=== PATIENT | female | born 1995 | race Caucasian/White ===

== ENCOUNTER → 2020-11-13 00:29 | Outpatient (CLI) | payer OTHER, SELFPAY ==
[2020-11-13 19:43] LABS: SARS-CoV-2 RNA PCR Negative
== END ==
PROVIDERS: PCP Internal Medicine; Visit Provider Surgery Plastic and Reconstructive Surgery
DX: Z01.812 Encounter for preprocedural laboratory examination (principal); Z20.822 Contact with and (suspected) exposure to COVID-19
CPT/HCPCS: C9803; U0003; U0005

== ENCOUNTER 2020-11-16 01:06 | Day surgery (SDC) | payer OTHER, SELFPAY ==
[2020-11-04 08:36] VITALS: BMI 33.9
[2020-11-16] VITALS (8 sets, daily range): BP systolic 130–147; BP diastolic 71–92; PULSE 69–99; RESP 12–18; TEMP 36.5–36.6; O2SAT 97–100
[2020-11-16] MEDS: LACTATED RINGERS 1,000 ML 30 ML IV CONT ×2 (09:09→13:22)
--- NOTE | 2020-11-16 09:17 | WPDANESEPPF ---
Anes - Initial Pre Proc Eval Procedure: Operation Date: 11/16/20 10:30 Proposed Procedures p Bilateral Breast Reduction - Gregory Aviles MD Date/Time: 11/16/20 09:17 Surgeon: Gregory Aviles MD Pre Op Diagnosis: Macromastia Patient Data Age: 25 Gender: F Height: 1.64 m Weight: 91 kg Allergies Allergy/AdvReac Type Severity Reaction Status Date / Time latex Allergy Severe Rash Verified 11/04/20 08:22 cranberry Allergy Hives Verified 11/04/20 08:22 Home Medications Medication Instructions Recorded Confirmed Type lamotrigine 50 mg PO HS 11/04/20 11/04/20 History Patient hx anesthesia problems: none Family hx anesthesia problems: none PMFSH Past Medical History Medical History (Updated 11/16/20 @ 09:17 by Sheng Arias DO) Anxiety Asthma no inhaler for years Migraine Seizure last seizure in 2015 - stopped meds in 2017 Vaginal delivery x1 Surgical History Surgical History History of bilateral tubal ligation 03-11-2018 History of ear surgery reconstructive surgery History of eye surgery tear duct tubes Previous section x1 Family History Family History Father Hypertension Diabetes mellitus Mother Hypertension Anxiety Depression Grandparent Diabetes mellitus Hypertension Anxiety Depression Social History Social History Smoking status: Never smoker Substance use: never Living arrangements: with family Spiritual care concerns: No Anes - Eval Final PreProcedure Day of Procedure 11/16/20 09:17 Patient weight: obese Heart: regular rate and rhythm Lungs: clear to auscultation and normal air movement Airway: Mallampati scale class II Neurological: alert and oriented Last oral intake: >/= 8 hours ASA classification: III Emergent: no Anesthetic plan: proceed Anesthesia type and monitoring: general LMA and standard monitoring Informed Consent: The patient's anesthetic plan and its attendant risks and benefits were discussed with the patient/family/POA. Questions were solicited and answers provided to the satisfaction of the patient/family/POA.
--- NOTE | 2020-11-16 10:00 | WPDHPUPDATE1 ---
History and Physical Update Update Date/Time: 11/16/20 10:00 History and Physical has been reviewed, including an updated exam of the patient. There are NO changes in the patient's condition. Risks, benefits, and alternatives have been discussed and questions answered. Patient agrees to proceed with procedure.
[2020-11-16 10:34] LABS: Urine Cotinine NEGATIVE
--- NOTE | 2020-11-16 10:34 | PM.PROC ---
Procedure Note - Detailed Date of procedure: 11/16/20 Pre-op diagnosis: Macromastia Breast Asymmetry Post-op diagnosis: same Procedure performed: Bilateral reduction mammaplasty Description of procedure: She is here today for bilateral breast reduction. Previously and again today the risks, benefits, alternatives were discussed in extensive detail. I wanted her to be very realistic about the risks involved as well as expectations. We discussed aftercare and what to monitor for. She understands we can never guarantee final breast size and there will always be asymmetry, especially given her significant pre-operative asymetry.. I was very upfront and honest about the risks of sensation change and even nipple loss (). Made sure answered all of her questions to her satisfaction today and consent was obtained. She was marked in the preoperative holding area with their verification. The patient was taken to the operating room placed supine on the operating table. Anesthesia was provided by anesthesiology. She was prepped and draped in a standard sterile fashion. A surgical time-out was taken. Stab incisions were made and I tumessed with a tumescent solution. I marked out the nipple-areolar complex at 38 mm. I then de-epithelialized the pedicle. The pedicle was well left well more than 2 cm in thickness. I then removed the inferior portion of the breast as well as the central keel to get shape based on preoperative planning. This was primarily on the right. On left will proceed at the same manner however minimal tissue was removed. She had a significant asymmetry which had to be addressed. At this point copiously irrigated with saline solution and verified a strict hemostasis. I reapproximated the pillars using a 2-0 PDS as well as along the IMF. I tailor tacked the breast into place with abi. She was placed in a sitting position. I verified the nipple-areolar complex position based on preoperative markings, intraoperative measurements, and observation which were in full agreement. This nipple-areolar complex was marked at 38 mm in size. I completed suction lipectomy based on S.A.F.E. technique using a 4 mm basket cannula in order to maximize symmetry sides. Total lipoaspirate 300cc. I then placed supine and de-epithelialized this. Nipple-areolar complex was inset with 3-0 Monocryl. I closed the vertical incision with 3-0 Monocryl in the IMF with 3-0 stratafix. Then everything was closed using a running subcuticular 4-0 Monocryl followed by Steri-Strips. A dressing was placed followed by surgical bra. Patient was awoke and taken to PACU without difficulty. All instrument sponge counts were correct at the end of the case. Anesthesia: GLMA Surgeon: Gregory Aviles MD Estimated blood loss (mL): 30 Drains: No Packing: No Pathology: yes (Right breast. Minimal left breast removed.) Complications: No immediate complications Condition: stable Disposition: PACU Findings: Inverted T Bilateral superior medial pedicle Tissue removed: Right - 745 grams Left - 20 grams
[2020-11-16] MEDS: ceFAZolin 2 GM/D5W 50 ML 2 GM/50 ML BAG IVPB (10:36)
[2020-11-16] MEDS: LACTATED RINGERS IRRIG 1,000 ML, LIDOCAINE HCL 1% LOCAL INJ 50 ML, EPINEPHrine HCL INJ ... INFILTRATE (10:36)
--- NOTE | 2020-11-16 12:17 | SUR.OPER ---
due to small tissue volurme removed from left breast, no tissue sent to pathology
[2020-11-16] MEDS: fentaNYL CITRATE INJ (*CRX) 100 MCG/2 ML VIAL 25 MCG IV PUSH ×2 (13:39→13:56)
[2020-11-16] MEDS: ONDANSETRON INJ 4 MG/2 ML VIAL IV PUSH (14:02)
[2020-11-16] MEDS: oxyCODONE HCL (*CRX) 5 MG TAB IR PO (14:28)
== END 2020-11-16 14:56 | disposition home or self-care (01) ==
PROVIDERS: PCP Internal Medicine; Visit Provider Surgery Plastic and Reconstructive Surgery
PROC: 0HBV0ZZ Excision of Bilateral Breast, Open Approach (ICD-10-PCS; CPT 19318; principal; 2020-11-16 10:30)
DX: N62 Hypertrophy of breast (principal); N60.31 Fibrosclerosis of right breast; E66.9 Obesity, unspecified; Z68.34 Body mass index [BMI] 34.0-34.9, adult
CPT/HCPCS: 19318; 80307; 88305; A9270; C9803; J0171; J0690; J1100; J1170; J2250; J2405; J2704; J3010; J7120; U0003; U0005

== ENCOUNTER 2021-09-26 14:01 | Outpatient (CLI) | payer OTHER, SELFPAY ==
--- NOTE | ~2021-09-26 | MR_ITS ---
EXAMINATION: MR orbits face neck wo/w con DATE: 09/26/2021 14:53 INDICATION: Visual field defect. New daily persistent headaches. TECHNIQUE: Magnetic resonance imaging (MRI) of the orbits was performed without and with 15 mL MultiH ance intravenous contrast. Sequences of the orbits included coronal and axial T2-weighted FS FSE and T1-weighted FSE. Postcontrast sequences included axial and coronal T1-weighted FS FSE. COMPARISON: None. FINDINGS: The extraocular muscles are normal. The optic nerves and optic chiasm are normal. There is no abnormal mass. The ocular globes are normal. There is mild mucosal thickening in the paranasal sin uses. There is a small right mastoid effusion. IMPRESSION: 1. Normal orbits. Reviewed, dictated and finalized at location A. IMPRESSION: 1. Normal orbits.
--- NOTE | ~2021-09-26 | MR_ITS ---
. EXAMINATION: MR brain/brain stem wo/w con DATE: 09/26/2021 14:53 INDICATION: Visual field defect. New daily persistent headache. TECHNIQUE: Magnetic resonance imaging (MRI) of the brain and brainstem was performed without and with 15 mL MultiHance intravenous contrast. Sequences included sagittal and axial T1-weighted FSE, axial diffusion-weighted FS EPI, axial T2*-weighted GRE, axial T2-weighted FLAIR Propeller, and axial T2-we ighted Propeller. Postcontrast sequences included axial and coronal T1-weighted FSE. Apparent diffusi on coefficient (ADC) maps were created. COMPARISON: None. FINDINGS: There is no intracranial hemorrhage, acute infarction, or abnormal intracranial mass lesion . The ventricles are normal in size. There is a small right mastoid effusion. There is mild mucosal t hickening in the paranasal sinuses. The orbits are normal. IMPRESSION: 1. Normal brain. Reviewed, dictated and finalized at location A. IMPRESSION: 1. Normal brain.
[2021-09-26 14:33] LABS: Estimated Glomerular Filt Rate > 60
== END 2021-09-26 14:02 ==
PROVIDERS: Visit Provider Ophthalmology
DX: H53.47 Heteronymous bilateral field defects (principal)
CPT/HCPCS: 70543; 70553; A9577

== ENCOUNTER 2022-09-13 11:46 | Outpatient (CLI) | payer OTHER, SELFPAY ==
[2022-09-13 12:25] LABS: Hematocrit 38.9 % (37.0-47.0); Hemoglobin 13.8 g/dL (12.0-15.0); Mean Corpuscular HGB Conc 35.5 g/dl (32-36); Mean Corpuscular Hemoglobin 29.5 pg (26-34); Mean Corpuscular Volume 83.1 fl (80-100); Mean Platelet Volume 10.5 fl (7.4-10.4); Platelet Count Result 306 k/mm3 (150-375); Red Blood Count 4.68 M/mm3 (4.2-5.4); Red Cell Distribution Width 12.4 % (11.5-14.5); White Blood Count 7.3 K/mm3 (4.5-10.0)
[2022-09-13 12:41] LABS: Alanine Aminotransferase 24 U/L (6-35); Albumin Level 4.7 g/dL (3.5-5.1); Alkaline Phosphatase 58 U/L (38-126); Anion Gap 6 mmol/L (8-16); Aspartate Amino Transferase 22 U/L (14-36); Bilirubin,Total 0.5 mg/dL (0.2-1.3); Blood Urea Nitrogen 8 mg/dL (7-17); CRP < 0.5 mg/dL (<1.0); Calcium 8.8 mg/dL (8.4-10.2); Carbon Dioxide 29 mmol/L (22-30); Chloride 105 mmol/L (98-107); Estimated Glomerular Filt Rate > 60; Glucose 84 mg/dL (65-110); Potassium 3.4 mmol/L (3.4-5.0); Sodium 140 mmol/L (137-145)
[2022-09-13 12:49] LABS: Erythrocyte Sedimentation Rate 17 mm/hr (0-20)
[2022-09-13 13:03] LABS: Hemoglobin A1C 4.6 % (<5.7)
[2022-09-23 19:47] LABS: Gliadin AB, IgG <1.0 U/mL (<15.0); TTG IGA AB <1.0 U/mL (<15.0)
== END 2022-09-13 11:47 | disposition home or self-care (01) ==
LOC: ANHLAB 11:47
PROVIDERS: Visit Provider Nurse Practitioner
DX: K52.9 Noninfective gastroenteritis and colitis, unspecified (principal); R10.31 Right lower quadrant pain; R10.32 Left lower quadrant pain
CPT/HCPCS: 36415; 80053; 83036; 84443; 85027; 85652; 86140; 86255; 86364

== ENCOUNTER 2022-10-02 09:00 | Outpatient (NON) | payer OTHER, SELFPAY | END 2022-10-02 09:01 | disposition home or self-care (01) | LOC: ANHLAB 10-03 07:33 | PROVIDERS: Visit Provider Internal Medicine Gastroenterology | DX: K52.9 Noninfective gastroenteritis and colitis, unspecified (principal) | CPT/HCPCS: 88305 ==

== ENCOUNTER 2022-10-02 11:59 | Day surgery (SDC) | payer OTHER, SELFPAY ==
[2022-09-19 07:54] VITALS: BMI 30.4
[2022-09-25 12:26] VITALS: BMI 29.5
--- NOTE | 2022-10-02 10:45 | WPDANESEPPF ---
Anes - Initial Pre Proc Eval Procedure: Operation Date: 10/02/22 13:30 Proposed Procedures p Diagnostic Colonoscopy - Angel Lyon MD Date/Time: 10/02/22 10:45 Surgeon: Angel Lyon MD Pre Op Diagnosis: Diarrhea, Gastroenteritis, Hamat[place]zia, Colitis Patient Data Age: 27 Gender: F Height: 1.63 m Weight: 78 kg Allergies Allergy/AdvReac Type Severity Reaction Status Date / Time latex Allergy Severe Hives Verified 09/25/22 12:23 cranberry Allergy Hives Verified 09/13/22 11:06 Home Medications Medication Instructions Recorded Confirmed Type dicyclomine 20 mg tablet 20 mg PO .every 6 hours PRN 09/13/22 09/25/22 Rx diarrhea #120 tabs sodium,potassium,mag sulfates 17.5 See Rx Instructions PO .COMPLEX 09/19/22 Rx gram-3.13 gram-1.6 gram oral soln #354 mL (Suprep Bowel Prep Kit) Patient hx anesthesia problems: none Family hx anesthesia problems: none Results Review: All pre-operative results and documents have been reviewed as part of the pre-operative evaluation. [facility] Past Medical History Medical History (Updated 09/13/22 @ 11:59 by Janet East, [employer]) Anxiety Asthma no inhaler for years Bilateral lower abdominal cramping Chronic diarrhea Chronic diarrhea Migraine Obesity (BMI 30.0-34.9) Prolapse of female pelvic organs Seizure last seizure in 2015 - stopped meds in 2017 Vaginal delivery x1 Surgical History Surgical History History of bilateral tubal ligation 03-11-2018 History of ear surgery reconstructive surgery History of eye surgery tear duct tubes Previous section x1 Family History Family History Father Hypertension Diabetes mellitus Mother Hypertension Anxiety Depression Grandparent Diabetes mellitus Hypertension Anxiety Depression Social History Social History Smoking status: Never smoker Alcohol intake: unknown Substance use: never Substance use type: does not use Living arrangements: with family Spiritual care concerns: No Anes - Eval Final PreProcedure Day of Procedure 10/02/22 10:45 Patient weight: overweight Heart: regular rate and rhythm Lungs: clear to auscultation and normal air movement Airway: Mallampati scale class II Neurological: alert and oriented Last oral intake: >/= 8 hours ASA classification: II Emergent: no Anesthetic plan: proceed Anesthesia type and monitoring: general GIVS and standard monitoring Results Review: All pre-operative results and documents have been reviewed as part of the pre-operative evaluation. Informed Consent: The patient's anesthetic plan and its attendant risks and benefits were discussed with the patient/family/POA. Questions were solicited and answers provided to the satisfaction of the patient/family/POA.
--- NOTE | 2022-10-02 12:19 | WPDHPUPDATE1 ---
History and Physical Update Update Date/Time: 10/02/22 12:19 History and Physical has been reviewed, including an updated exam of the patient. There are NO changes in the patient's condition. Risks, benefits, and alternatives have been discussed and questions answered. Patient agrees to proceed with procedure.
[2022-10-02 12:20] VITALS: BP 125/88; PULSE 78; RESP 20; TEMP 36.7; O2SAT 99
[2022-10-02] MEDS: LACTATED RINGERS 1,000 ML 150 ML IV CONT (12:37)
[2022-10-02 14:06] VITALS: BP 125/71; PULSE 78; RESP 18; O2SAT 100
[2022-10-02 14:16] VITALS: BP 107/74; PULSE 82; RESP 18; O2SAT 100
[2022-10-02 14:26] VITALS: BP 116/81; PULSE 84; RESP 18; O2SAT 100
--- NOTE | 2022-10-02 15:01 | WPDANESPN ---
Anes - Prog Note Post-Op Date/Time: 10/02/22 15:01 Cardiovascular status: normal Respiratory status: normal Airway patency: baseline Mental status: baseline Post-Op hydration status: normal Vital Signs: Last Vital Signs Temp 36.7 C 10/02/22 12:20 Pulse 84 10/02/22 14:26 Resp 18 10/02/22 14:26 BP 116/81 10/02/22 14:26 Pulse Ox 100 10/02/22 14:26 O2 Del Method Room Air 10/02/22 14:26 Pain Score (VAS): 0 I/O: Intake & Output 10/01/22 10/02/22 10/02/22 23:59 07:59 15:59 Intake Total 800 Balance 800 Post-procedural complaints: none Patient Feedback: Patient satisfied with anesthetic care.
== END 2022-10-02 14:40 | disposition home or self-care (01) ==
PROVIDERS: Visit Provider Internal Medicine Gastroenterology
PROC: 0DJD8ZZ Inspection of Lower Intestinal Tract, Via Natural or Artificial Opening Endoscopic (ICD-10-PCS; CPT 45378; principal; 2022-10-02 13:30)
DX: R19.7 Diarrhea, unspecified (principal)
CPT/HCPCS: 45380

== ENCOUNTER 2024-10-21 15:37 | Outpatient (CLI) | payer OTHER, SELFPAY ==
--- NOTE | 2024-10-21 15:51 | ECG_ITS ---
Test Date: 2024-10-21 16:06:31 Measurements Intervals [place] Rate: 78 P: 42 NC: 144 QRS: 69 QRSD: 91 T: 43 QT: 383 QTc: 439 Interpretive Statements SINUS RHYTHM LOW QRS VOLTAGE IN PRECORDIAL LEADS BORDERLINE ECG No previous ECG available for comparison Electronically Signed On 10-21-2024 16:09:00 CDT by Ran Cook D.O.
[2024-10-21 15:53] LABS: Basophils Absolute Auto 0.03 K/mm3 (0.00-0.10); Basophils Percent Auto 0.3 % (0.0-1.0); Eosinophils Absolute Auto 0.14 K/mm3 (0.02-0.50); Eosinophils Percent Auto 1.6 % (1.0-6.0); Hematocrit 37.9 % (35.0-49.0); Hemoglobin 12.8 g/dL (12.0-15.0); Immature Granulocyte Absolute 0.03 K/mm3 (0.00-0.00); Immature Granulocyte Percent A 0.3 % (0.0-0.0); Lymphocytes Absolute Auto 2.24 K/mm3 (1.10-4.50); Lymphocytes Percent Auto 26.1 % (18.0-42.0); Mean Corpuscular HGB Conc 33.8 g/dL (32-36); Mean Corpuscular Hemoglobin 28.8 pg (27.0-31.0); Mean Corpuscular Volume 85.2 fL (78.0-102.0); Mean Platelet Volume 9.7 fl (9.2-11.8); Monocytes Absolute Auto 0.57 K/mm3 (0.10-0.90); Monocytes Percent Auto 6.6 % (2.0-11.0); Neutrophils Absolute Auto 5.58 K/mm3 (1.70-7.20); Neutrophils Percent Auto 65.1 % (50.0-70.0); Platelet Count Result 314 K/mm3 (150-420); Red Blood Count 4.45 M/mm3 (4.20-5.40); Red Cell Distribution Width 12.8 % (11.6-14.4); White Blood Count 8.6 K/mm3 (4.8-10.8)
[2024-10-21 16:54] LABS: Alanine Aminotransferase 28 U/L (14-59); Alkaline Phosphatase 68 U/L (46-116); Anion Gap 8 mmol/L (4-12); Aspartate Amino Transferase 16 U/L (15-37); Bilirubin,Total 0.5 mg/dL (0.00-1.00); Blood Urea Nitrogen 6 mg/dL (7-18); Calcium 9.3 mg/dL (8.5-10.1); Carbon Dioxide 29 mmol/L (21-32); Chloride 105 mmol/L (98-108); Cholesterol 205 mg/dL (0-200); Estimated Glomerular Filt Rate > 60; Glucose 74 mg/dL (70-99); HDL Direct 43 mg/dL (40-60); LDL Cholesterol Calculated 128 mg/dL (<130); Osmolality Calculated 290 mOsm/kg (285-295); Potassium 4.2 mmol/L (3.5-5.1); Sodium 142 mmol/L (136-145); Thyroid Stimulating Hormone 3.17 uIU/mL (0.36-3.74); Total Protein 7.6 g/dL (6.4-8.2); Triglycerides 170 mg/dL (0-150)
--- OUTSIDE RECORDS SUMMARY | 2024-10-21 17:42 | XMS_ITS | Clinical Summary ---
Author Organization [facility] Address [address] [place] [id number] Care Team Providers Care [employer] Outfit Supervisor Name Role Phone Dawood New MD Primary Care Provider [phone] Dawood New MD Unavailable Allergies Active Allergy Reactions Criticality Noted Date Comments Cranberry Extract Rash Medium 08/29/2011 Latex Hives Medium 06/22/2021 Medications No known medications Active Problems Problem Noted Date Diagnosed Date Physical exam, annual 07/10/2022 Assessment & Plan (07/10/2022 3:40 PM SUBSTATION OPERATOR): Discussed lifestyle modifications, diet and exercise. Routine blood work ordered/reviewed today. Yearly vision and dental examinations. Class 1 obesity without seri ous comorbidity with body mass index (BMI) of 31.0 to 31.9 in adult 07/06/2021 Assessment & Plan (07/10/2022 3:42 PM SUBSTATION OPERATOR): Wt Readings from Last 3 Encounters: 07/10/22 83.9 kg (185 lb) 01/05/22 85.7 kg (188 lb 14.4 oz) 11/16/21 90.3 kg (199 lb) BMI Readings from Last 3 Encounters: 07/10/22 31.27 kg/m 01/05/22 31.94 kg/m 11/16/21 33.64 kg/m Not at goal of bmi <30 Continue diet and exercise BMI Follow-up includes: nutrition counseling and exercise counseling. States that she hasd singificant side effects with metformin. Will stop metformin now and try something else Assessment & Plan (07/06/2021 3:46 PM SUBSTATION OPERATOR): HPI: Condition is not at/near goal A&P: Discussed/ordered labs, encouraged healthy, low carbohydrate lifestyle and at least 150min/week of exercise, continue on current regimen Encounter for well woman fay castelan with routine gynecological exam 07/06/2021 Assessment & Plan (07/06/2021 3:20 PM SUBSTATION OPERATOR): Discussed lifestyle modifications, diet and exercise. Routine blood work ordered/reviewed today. Yearly vision and dental examinations. Amenorrhea, secondary 06/22/2021 Assessment & Plan (07/18/2021 12:05 PM SUBSTATION OPERATOR): Still no period. No other symptoms blood work normal. 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 Addendum: Pap showed ACUS with negative HPV. Advised pt she will need repeat pap in 1 year. Would lke referral to OBGYN due to amenorrhea Assessment & Plan (06/22/2021 3:02 PM SUBSTATION OPERATOR): Unknown cause, has been going on for 2 months. States that she has been gaining singnificant weight since her last childbirth Recurrent major depressive disorder, in partial remission 06/22/2021 Assessment & Plan (07/10/2022 3:40 PM SUBSTATION OPERATOR): Stable - not currently on antidepressives. Doing well otherwise Patient reiterated no suicidal thoughts at this time; take medication as directed; contact 911 and go to the ER if becomes suicidal; discussed side effects of medication with patient; encouraged healthy diet and exericise; encouraged patient to see a counselor Assessment & Plan (06/22/2021 3:06 PM SUBSTATION OPERATOR): Patient reiterated no suicidal thoughts at this time; take medication as directed; contact 911 and go to the ER if becomes suicidal; discussed side effects of medication with patient; encouraged healthy diet and exericise; encouraged patient to see a counselor Abnormal weight gain 06/22/2021 Assessment & Plan (07/06/2021 3:45 PM SUBSTATION OPERATOR): Weight manamgenet referral placed. Noted with elevated c - peptide. Can consider work up for pcos, consider starting metformin Assessment & Plan (06/22/2021 3:08 PM SUBSTATION OPERATOR): Will check lab work, and have patient return for follow up. Is currentl making lifestyle and diet changes, works out daily and continues to have weight gain. Potential galactorrhea but patient is unsure Allodynia 12/06/2012 Chronic daily headache 12/06/2012 Assessment & Plan (06/22/2021 3:06 PM SUBSTATION OPERATOR): Headaches doing okay at this time,but will check prolactin level in setting of other issues as well. 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 Asthma 11/08/2009 Resolved Problems Problem Noted Date Diagnosed Date Resolved Date Behavior-irritability 11/08/20092021 Bilateral knee pain 11/08/2009 07/06/19 22 Immunizations Immunization Administration Dates Next Due DTaP 04/26/2000, 0,04/23/1997,09/19,1996 HPV, Quadrivalent 01/31/2011 Hep A, Adult 03/02/2006 Hep A, Pediatric 02/07/2010,03/02/2006 Hep B Vaccine 03/02/2006,08/16/2005,02/22/2005 Hep B, Adolescent or Pediatric 03/02/2006,2005,02/22/2005 HiB 04/26/2000, 7,1996,05/14 IPV 04/26/2000,03/15/2000,1996 Influenza, Quadrivalent, Marie l Culture-based MDCK, Preservative Free, Antibiotic Free, Intramuscular 03/25/2020 Influenza, Quadrivalent, Spl it, Preservative Free, Intramuscular 05/07/2018,09/06/2017 Influenza, Unspecified 05/02/2022,04/26/2021 MMR 03/15/2000,03/02/1998 Meningococcal Conjugate (Menveo) 02/07/2010 Polio, Unspecified 04/26/2000,03/15/2000, 996 Tdap 11/03/2009 Social History Tobacco Use Types Packs/Day Years Used Date Smoking Tobacco: Never PHQ-2 Answer Date Recorded PHQ-2 Total Score (If total score is 3 or more points, staff should administer the PHQ-9) 0 07/10/2022 Personal Safety Answer Date Recorded Getting School Help Needed Not on file 07/15 Comments Unknown Sex and Gender Information Value Date Recorded Sex Assigned at Not on file Legal Sex Female 3:30 PM SUBSTATION OPERATOR Gender Identity Not on file Sexual Orientation Not on file Obstetrics History Last Filed Vital Signs Vital Sign Reading Time Taken Comments Blood Pressure 121/74 07/10/2022 3:34 PM SUBSTATION OPERATOR Pulse 96 07/10/2022 3:34 PM SUBSTATION OPERATOR Temperature 36.4 C (97.5 F) 07/10/2022 3:34 PM SUBSTATION OPERATOR Respiratory Rate 18 07/10/2022 3:34 PM SUBSTATION OPERATOR Oxygen Saturation 98% 07/10/2022 3:34 PM SUBSTATION OPERATOR Inhaled Oxygen Concentration - - Weight 83.9 kg (185 lb) 07/10/2022 3:34 PM SUBSTATION OPERATOR Height 163.8 cm (5' 4.49 ) 07/10/2022 3:34 PM CS T Body Mass Index 31.27 07/10/2022 3:34 PM SUBSTATION OPERATOR Plan of Treatment Health Maintenance Due Date Last Done Comments Hepatitis C Screening 1995 Varicella Vaccines (1 of 2 - 13+ 2-dose series) 02/23/2009 HPV Vaccines (2 - 2-dose series) 08/03/2011 02/01/20 11 Pneumococcal vaccine <65 (1 of 2 - PCV) 02/23/2015 DTaP/Tdap/Td Vaccine (6 - Td or Tdap) 11/04/2019 11/03/2009, 04/26/2000, 03/15/2000, Additional history exists Cervical Cancer Screening 07/06/2022 07/06/2021 Depression Screening 07/10/2023 07/10/2022, 07/06/2021, 06/22/2021 Regular Well Visit/Exam 18-64 07/10/2023 07/10/2022, 07/06/2021 Covid-19 Vaccine ( - 2023-2 5 season) 2024 11/12/2021, 03/03/2021, 02/10/2021 Influenza Vaccine (#1) 2024 2, 04/26/2021, 03/25/2020, Additional history exists Hepatitis B Screening Completed 03/02/2006 , 03/02/2006, 08/16/2005, Additional history exists Procedures Procedure Name Priority Date/Time Associated Diagnosis Comments PAP AND HIGH RISK HPV, REFLEX TO GENOTYPING Routine 07/06/2021 11:01 AM SUBSTATION OPERATOR from Last 3 Months or Most Recently Relevant to Health Maintenance Results * (ABNORMAL) Pap and High Risk HPV, reflex to Genotyping (07/06/2021 11:01 AM SUBSTATION OPERATOR) Pap test 07/06/2021 11:0 1 AM SUBSTATION OPERATOR 07/07/2021 11:01 AM SUBSTATION OPERATOR Narrative 07/13/2021 3:17 PM SUBSTATION OPERATOR [facility] Department of Pathology [address] [place], [place] [id number] Final Report with Addendum Note to Patients: This report may contain a detailed description of human tissue sent by a health care provider to the laboratory for pathologic evaluation. The content of this report is essential for diagnosis and may provide important critical findings. This information may be unfamiliar to patients to review without a medical professional present. It is advised that the patient review this report in the presence of a health care provider who can answer questions and explain the details. Patient Name: GALE CHENEY Address: [address] [place] [address] Gender: F : 1995 (Age: 26) Service: Laboratory Location: Lab [facility] #: [id number] Patient Type: Ref Lab Taken: 07/06/2021 Received: 07/07/2021 Accessioned:: 07/08/2021 Reported: 07/13/2021 Physician(s): Juan Antonio Hernandes M.D. Diagnosis: Source of Specimen: SCREENING THIN PREP IMAGED PAP w/ Reflex HPV Specimen Adequacy: - Satisfactory for evaluation; endocervical/transformation zone component present General Category: - Epithelial cell abnormality Interpretation/Results: - Atypical squamous cells of undetermined significance; - High risk HPV test pending -- addendum to follow FORREST Sargent(ASCP) Ezequiel Deleon M.D. Report Electronically Reviewed and Signed Out By Ezequiel Deleon M.D. 07/13/2021 15:17:20 Addenda: HPV Test Interpretation NEGATIVE for types 16, 18, 31, 33, 35, 39, 45, 51, 52, 56, 58, 59, 66 and 68. Test performed utilizing Gen-Probe Aptima assay. FORREST Burdick(ASCP) Report Electronically Reviewed and Signed Out By FORREST Burdick(ASC) 07/15/2021 13:44:18 Specimen(s) Received: A: SCREENING THIN PREP IMAGED PAP w/ Reflex HPV Clinical History: Last Menstrual Period: 04/12/21 Menstrual History: Amenorrhea: (-) The Pap test is a screening test used to aid in the detection of cervical cancer and its precursors. It should not be the sole means by which malignant and premalignant lesions are diagnosed. Both false negative and false positive results may occur. It also has poor sensitivity for the detection of endometrial lesions and should not be used to evaluate suspected endometrial abnormalities. For these reasons it is most important to obtain Pap tests at regular intervals. The performance characteristics of some immunohistochemical stains, fluorescence in-situ hybridization tests and immunophenotyping by flow cytometry cited in this report (if any) were determined by the Surgical Pathology Department at as part of an ongoing quality assurance clerk program and in compliance with federally mandated regulations drawn from the Clinical Laboratory Improvement Act of 1988 (CLIA '88). Some of these tests rely on the use of analyte specific reagents and are subject to specific labeling requirements by the US Food and Drug Administration. Such diagnostic tests may only be performed in a facility that is certified by the Department of Health and Human Services as a high complexity laboratory under CLIA '88. The FDA has determined that such clearance or approval is not necessary. This test is used for clinical purposes. It should not be regarded as investigational or for research. Nevertheless, federal rules concerning the medical use of analyte specific reagents require that the following disclaimer be attached to the report: This test was developed and its performance characteristics determined by the Surgical Pathology Department [facility]. It has not been cleared or approved by the U. S. Food and Drug Administration. Dawood New MD LAB CYTOLOGY ORDERABLES Final Re sult from Last 3 Months or Most Recently Relevant to Health Maintenance Insurance [facility] CHOICE PLUS [facility] HMO/PPO Address: [facility] [id number] [place] [address] Care Teams Hull Outfit Supervisor Relationship Specialty Start Date End Date Dawood New MD PCP - General 06/23/21 Dawood New MD Family Medicine 06/23/21
--- OUTSIDE RECORDS SUMMARY | 2024-10-21 17:42 | XMS_ITS | Clinical Summary ---
Author Organization [facility] Address [address] [place] [address] Care Team Providers Care Crystal Report Developer Name Role Phone Otoniel Key MD Primary Care Provider [phone] Source Comments [facility],non-owned Affiliates and Associated Physician Practices is amultiple site organization consisting of ambulatory clinics and hospital sitesin [place], [place], [place] and [place]. This disclosure is being madepursuant to the Care Everywhere program and may not contain all information available regarding this patient. Last updated 18.[facility] Allergies Active Allergy Reactions Criticality Noted Date Comments Cranberry Extract Rash Medium 08/29/2011 Medications * Be aware that medications may not be up to date on this document. Alwaysverify current medications with the patient. No known medications Social History Tobacco Use Types Packs/Day Years Used Date Smoking Tobacco: Never Smokeless Tobacco: Never Comments Unknown Sex and Gender Information Value Date Recorded Sex Assigned at Not on file Legal Sex Female 11:27 AM TOP TRIMMER Gender Identity Not on file Sexual Orientation Not on file Last Filed Vital Signs Vital Sign Reading Time Taken Comments Blood Pressure 118/68 08/13/2019 3:05 PM TOP TRIMMER Pulse 103 08/13/2019 3:05 PM TOP TRIMMER Temperature 36.3 C (97.4 F) 08/13/2019 3:05 PM TOP TRIMMER Respiratory Rate - - Oxygen Saturation - - Inhaled Oxygen Concentration - - Weight 85.7 kg (189 lb) 08/13/2019 3:05 PM TOP TRIMMER Height 165.1 cm (5' 5 ) 08/13/2019 3:05 PM TOP TRIMMER Body Mass Index 31.45 08/13/2019 3:05 PM TOP TRIMMER Plan of Treatment Health Maintenance Due Date Last Done Comments PAP SMEAR 1995 HIV SCREENING 02/23/2011 HEPATITIS C SCREENING 02/19/2014 DTAP/TDAP/TD VACCINES (1 - Tdap) 02/23/2015 HEPATITIS B VACCINE (1 of 3 - 19+ 3-dose series) 02/23/2015 COVID-19 VACCINE (1 - 2023-2 5 season) 2024 DEPRESSION SCREENING 07/02/2024 INFLUENZA VACCINE (Season Ended) 2025 05/07/20 18 ZOSTER VACCINE (1 of 2) 02/23/2046 HIB VACCINE Aged Out No longer eligi ble based on patient's age to complete this topic HPV VACCINE Aged Out No longer eligi ble based on patient's age to complete this topic MENINGOCOCCAL (Group B) VACC INE SHARED DECISION-MAKING Aged Out No longer eligibl e based on patient's age to complete this topic MENINGOCOCCAL GROUPS A/C/Y/W VACCINE Aged Out No longer eligible b ased on patient's age to complete this topic PNEUMOCOCCAL VACCINE Aged Out No long er eligible based on patient's age to complete this topic Insurance MEDICAID - [place] Care Teams Crystal Report Developer Relationship Specialty Start Date End Date Otoniel Key MD [address] [place] [address] PCP - General 01/18/21
--- OUTSIDE RECORDS SUMMARY | 2024-10-21 17:42 | XMS_ITS | Referral Summary ---
Author Organization [facility] Address [address] [place] [id number] Care Team Providers Care Stove Mounter Name Role Phone Dawood New MD Primary Care Provider [phone] Dawood New MD Unavailable Allergies Active Allergy Reactions Criticality Noted Date Comments Cranberry Extract Rash Medium 08/29/2011 Latex Hives Medium 06/22/2021 Medications No known medications Active Problems Problem Noted Date Diagnosed Date Physical exam, annual 07/10/2022 Assessment & Plan (07/10/2022 3:40 PM CHUTE GREASER): Discussed lifestyle modifications, diet and exercise. Routine blood work ordered/reviewed today. Yearly vision and dental examinations. Class 1 obesity without seri ous comorbidity with body mass index (BMI) of 31.0 to 31.9 in adult 07/06/2021 Assessment & Plan (07/10/2022 3:42 PM CHUTE GREASER): Wt Readings from Last 3 Encounters: 07/10/22 [...] else Assessment & Plan (07/06/2021 3:46 PM CHUTE GREASER): HPI: Condition is not at/near goal A&P: Discussed/ordered labs, encouraged healthy, low carbohydrate lifestyle and at least 150min/week of exercise, continue on current regimen Encounter for well woman fay castelan with routine gynecological exam 07/06/2021 Assessment & Plan (07/06/2021 3:20 PM CHUTE GREASER): Discussed lifestyle modifications, diet and exercise. Routine blood work ordered/reviewed today. Yearly vision and dental examinations. Amenorrhea, secondary 06/22/2021 Assessment & Plan (07/18/2021 12:05 PM CHUTE GREASER): Still no period. No other symptoms blood work normal. Will likely need referral for prime minister, will wait for pap results. Addendum: Pap showed ACUS with negative HPV. Advised pt she will need repeat pap in 1 year. Would lke referral to OBGYN due to amenorrhea Assessment & Plan (06/22/2021 3:02 PM CHUTE GREASER): Unknown cause, has been going on for 2 months. States that she has been gaining singnificant weight since her last childbirth Recurrent major depressive disorder, in partial remission 06/22/2021 Assessment & Plan (07/10/2022 3:40 PM CHUTE GREASER): Stable - not currently on antidepressives. Doing well otherwise Patient reiterated no suicidal thoughts at this time; take medication as directed; contact 911 and go to the ER if becomes suicidal; discussed side effects of medication with patient; encouraged healthy diet and exericise; encouraged patient to see a counselor Assessment & Plan (06/22/2021 3:06 PM CHUTE GREASER): Patient reiterated no suicidal thoughts at this time; take medication as directed; contact 911 and go to the ER if becomes suicidal; discussed side effects of medication with patient; encouraged healthy diet and exericise; encouraged patient to see a counselor Abnormal weight gain 06/22/2021 Assessment & Plan (07/06/2021 3:45 PM CHUTE GREASER): Weight manamgenet referral placed. Noted with elevated c - peptide. Can consider work up for pcos, consider starting metformin Assessment & Plan (06/22/2021 3:08 PM CHUTE GREASER): Will check lab work, and have patient return for follow up. Is currentl making lifestyle and diet changes, works out daily and continues to have weight gain. Potential galactorrhea but patient is unsure Allodynia 12/06/2012 Chronic daily headache 12/06/2012 Assessment & Plan (06/22/2021 3:06 PM CHUTE GREASER): Headaches doing okay at this time,but will [...] on file Legal Sex Female 3:30 PM CHUTE GREASER Gender Identity Not on file Sexual Orientation Not on file Last Filed Vital Signs Vital Sign Reading Time Taken Comments Blood Pressure 121/74 07/10/2022 3:34 PM CHUTE GREASER Pulse 96 07/10/2022 3:34 PM CHUTE GREASER Temperature 36.4 C (97.5 F) 07/10/2022 3:34 PM CHUTE GREASER Respiratory Rate 18 07/10/2022 3:34 PM CHUTE GREASER Oxygen Saturation 98% 07/10/2022 3:34 PM CHUTE GREASER Inhaled Oxygen Concentration - - Weight 83.9 kg (185 lb) 07/10/2022 3:34 PM CHUTE GREASER Height 163.8 cm (5' 4.49 ) 07/10/2022 3:34 PM CS T Body Mass Index 31.27 07/10/2022 3:34 PM CHUTE GREASER Plan of Treatment Not on file Procedures Procedure Name Priority Date/Time Associated Diagnosis Comments PAP AND HIGH RISK HPV, REFLEX TO GENOTYPING Routine 07/06/2021 11:01 AM CHUTE GREASER from Last 3 Months or Most Recently Relevant to Health Maintenance Results * (ABNORMAL) Pap and High Risk HPV, reflex to Genotyping (07/06/2021 11:01 AM CHUTE GREASER) Pap test 07/06/2021 11:0 1 AM CHUTE GREASER 07/07/2021 11:01 AM CHUTE GREASER Narrative 07/13/2021 3:17 PM CHUTE GREASER [facility] Department of Pathology [address] [place] [id number] Final Report with Addendum Note to Patients: [...] the details. Patient Name: GALE CHENEY Address: [address] [place] [id number] Gender: F : 1995 (Age: 26) Service: Laboratory Location: Lab Hospital #: [id number] Patient Type: Ref Lab Taken: 07/06/2021 Received: [...] Test performed utilizing Gen-Probe Aptima assay. FORREST Burdick(ASC) Report Electronically Reviewed and Signed Out By AMIRAH BurdickASC) 07/15/2021 13:44:18 Specimen(s) Received: A: SCREENING THIN [...] determined by the Surgical Pathology Department at [facility] as part of an ongoing fiberglass quality technician program and in compliance with federally mandated [...] characteristics determined by the Surgical Pathology Department [facility]. It has not been cleared or approved by the U. S. Food and Drug Administration. Dawood New MD LAB CYTOLOGY ORDERABLES Final Re sult from Last 3 Months or Most Recently Relevant to Health Maintenance Insurance [facility] CHOICE PLUS [facility] HMO/PPO Address: [facility] [id number] [place] [id number] Care Teams Stove Mounter Relationship Specialty Start Date End Date Dawood New MD PCP - General 06/23/21 Dawood New MD Family Medicine 06/23/21
--- OUTSIDE RECORDS SUMMARY | 2024-10-21 17:42 | XMS_ITS | Clinical Summary ---
Author Organization [facility] Address [address] [place] [address] Care Team Providers Care Oracle R12 Developer Name Role Phone None, Provider MD Primary Care Provider Unavaila ble Allergies Active Allergy Reactions Criticality Noted Date Comments Cranberry Extract Rash Medium 08/29/2011 Latex Hives Medium 06/22/2021 Medications No known medications Social History Tobacco Use Types Packs/Day Years Used Date Smoking Tobacco: Never Assessed Comments Unknown Sex and Gender Information Value Date Recorded Sex Assigned at Not on file Legal Sex Female 11:40 AM MOVIE STUNT PERFORMER Gender Identity Not on file Sexual Orientation Not on file Last Filed Vital Signs Vital Sign Reading Time Taken Comments Blood Pressure 131/75 07/02/2024 5:07 AM MOVIE STUNT PERFORMER Pulse 64 07/02/2024 5:07 AM MOVIE STUNT PERFORMER Temperature 36.4 C (97.6 F) 07/02/2024 5:07 AM MOVIE STUNT PERFORMER Respiratory Rate 18 07/02/2024 5:07 AM MOVIE STUNT PERFORMER Oxygen Saturation 100% 07/02/2024 5:07 AM MOVIE STUNT PERFORMER Inhaled Oxygen Concentration - - Weight 90.4 kg (199 lb 3.2 oz) 07/02/2024 12:41 AM MOVIE STUNT PERFORMER Height 165.1 cm (5' 5 ) 07/02/2024 12:41 AM MOVIE STUNT PERFORMER Body Mass Index 33.15 07/02/2024 12:41 AM MOVIE STUNT PERFORMER Plan of Treatment Health Maintenance Due Date Last Done Comments Annual Physical 02/23/1999 HPV Vaccines (2 - 2-dose series) 08/03/2011 01/31/2011 Hepatitis C 02/23/2014 COVID-19 Vaccine ( season) 2024 12/05/2022, 11/12/2021, 03/03/2021, Additional history exists Cervical Cancer Screening Pap Smear (Age 21 to 29) Every 3 Years 07/06/2024 07/06/2021 Cervical Cancer Screening 07/06/2024 DTaP, Tdap and Td Vaccines (8 - Td or Tdap) 12/01/2032 12/01/2022, 11/03/2009, 11/03/2009, Additional history exists Hepatitis B Vaccines Completed 03/02/2006, 08/16/2005, 02/22/2005 Meningococcal Vaccine Aged Out 02/07/2010 No nigel keturah eligible based on patient's age to complete this topic Meningococcal B Vaccine Aged Out No l onger eligible based on patient's age to complete this topic Pneumococcal Vaccine: Pediatrics (0 to 5 Years) and At-Risk Patients (6 to 49 Years) Aged Out No longer eligible based on patient's age to complete this topic RSV Immunizations Under 20 Months Aged Out No longer eligible based on patient's age to complete this topic Insurance [place] [address] Care Teams Oracle R12 Developer Relationship Specialty Start Date End Date None, Provider, PCP - General UNKNOWN PHYSICIAN SPECIALTY 07/02/24
[2024-10-23 02:09] LABS: Vitamin D 25 Hydroxy 25 ng/mL (30-100)
== END 2024-10-21 15:38 | disposition home or self-care (01) ==
PROVIDERS: PCP Nurse Practitioner Family; Visit Provider Nurse Practitioner Family
DX: Z00.00 Encounter for general adult medical examination without abnormal findings (principal); E55.9 Vitamin D deficiency, unspecified; I49.49 Other premature depolarization; I10 Essential (primary) hypertension
CPT/HCPCS: 36415; 80053; 80061; 82306; 83036; 84443; 85025; 93005

== ENCOUNTER 2024-12-16 12:26 | Emergency (ER) | payer OTHER, SELFPAY ==
[2024-12-16 12:29] VITALS: BP 151/98; PULSE 68; RESP 14; TEMP 36.8; O2SAT 99
[2024-12-16 12:34] VITALS: BP 151/98; O2SAT 98
[2024-12-16 12:46] VITALS: BP 136/91; PULSE 88; RESP 15; O2SAT 100
[2024-12-16 12:47] VITALS: PULSE 70; RESP 18; O2SAT 99
--- OUTSIDE RECORDS SUMMARY | 2024-12-16 12:56 | XMS_ITS | Continuity of Care Document ---
Author Organization [facility] Address [id number] [address] Phone Care Team Providers Care Adjunct Philosophy Faculty Name Role Phone Health, Community Unavailable Unavailable Allergies, Adverse Reactions, Alerts Substance Reaction Status Criticality No Known Allergies Active No Inform ation Problems Condition Type Effective Dates (start - stop) Clini dhruv Status Comments No Known Problems Procedures Procedure Date NO CHARGE Community Health Worker Patient Face To Face CHYLMD TRACH DNA AMP PROBE N.GONORRHOEAE DNA AMP PROB PAP With Rfx HPV ASC-U CYTOPATH, C/V, THIN LAYER CYTOPATH, C/V, THIN LAYER OFFICE/OUTPATIENT VISIT, NEW IMMUNIZATION ADMIN FLU VAC NO PRSV 4 BENSON 3 YRS+ ABO GROUP & RHO(D) TYP (PP $10.25)CPTs 8 [id number] ANTIBODY SCREEN COMPLETE CBC W/AUTO DIFF WBC HEPATITIS B SURFACE AG EIA HEPATITIS C AB TEST HIV ANTIGEN W/HIV ANTIBODIES RPR RUBELLA ANTIBODY ASSAY THYROID STIM HORMONE Varicella-Zoster V AB, IgG ROUTINE VENIPUNCTURE URINALYSIS AUTO W/O SCOPE Drug Tests Presumptive Any Number Of Zachariah g Classes URINE TEST URINE CULTURE, ROUTINE CPT 26823 2017 NO CHARGE Community Health Worker Patient Face To Face NO CHARGE Advance Directives Directive Yes / No Effective Date File Name No Information Encounters Encounter Description Practice Location Reason(s) For Visit Diagnoses Date Provider Providers Copied on Encounter [facility], [id number]- [place], [place], [id number], [place] tel:[phone] Family Medicine F1 No Information [facility]. [address], [place], [address], [place]. tel:[phone] [facility], [id number]- [place], [address], [place] tel:[phone] [facility] F1 No Information 8 Kenny Bhagat. [address], [place], [address], [place]. tel:[phone] Referring Provider: Leola Cox , [address] [place], [address] . tel:[phone] [facility], [id number]- [place], [place], [address], [place] tel:[phone] Family Medicine F1 No Information 8 [facility]. [address], [place], [address], [place]. tel:[phone] [facility], [id number]- [place], [address], [place] tel:[phone] Family Medicine F1 Encntr screen for infections w sexl mode of transmissEncounte r for screening for malignant neoplasm of cervix 8 Kenny Bhagat. [address], [place], [address], [place]. tel:[phone] Referring Provider: Leola Cox , [address] [place], [address] . tel:[phone] OFFICE/OUTPA TIENT VISIT, [facility], [id number]- [place], [place], [address], [place] tel:[phone] [facility] F1 (chief complaint) Encntr screen for infections w sexl mode of transmissEncounte r for screening for malignant neoplasm of cervixEncntr for suprvsn of normal preg, unsp, first trimesterEncounte r for screening for nuchal translucencyEncnt r for nurse gynecology exam (general) (routine) w/o abn findingsEncntr for nurse gynecology exam (general) (routine) w/o abn findings Mar-0 8-201 8 Kenny Bhagat. [address], [place], [address], [place]. tel:[phone] Referring Provider: Leola Cox , [address] [place], [address] . tel:[phone] [facility], [id number], [address], [place] tel:[phone] Family Medicine Encntr for suprvsn of normal preg, unsp, first trimester Mar-0 8-201 8 Kenny Bhagat. [address] [place], [place], [address], [place]. tel:[phone] Referring Provider: Leola Cox , [address] [place], [address] . tel:[phone] [facility], [id number] [place], [address], [place] tel:[phone] Family Medicine F1 Amenorrhea, unspecified Mar-0 8-201 8 Kenny Bhagat. [address] [place], [place], [address], [place]. tel:[phone] Referring Provider: Leola Cox , [address] [place], [address] . tel:[phone] [facility], [id number] [id number]- [facility], [place], [place], [address], [place] tel:[phone] [place] [address] No Information No Information [facility], [id number], [address], [place] tel:[phone] Family Medicine F1 No Information [facility]. [address], [place], [address], [place]. tel:[phone] [facility], [id number] [place], [address], [place] tel:[phone] [place] [address] No Information Tim Hurtado. [address] [place], [place], [address], [place]. tel:[phone] Referring Provider: Genesis Dumont, [address] [place], [address] . tel:[phone] Family History Family Member Type Diagnosis Age At Onset Paternal grandfather Problem (finding) Diabetes mellit us Maternal uncle Problem (finding) Diabetes mellitus Paternal grandmother Problem (finding) Diabetes mellit us Maternal aunt Problem (finding) Diabetes mellitus Paternal grandmother Problem (finding) malignant neoplasm of cervix uteri Maternal grandfather Problem (finding) Diabetes mellit us Maternal grandmother Problem (finding) Diabetes mellit us Immunizations Vaccine Date Status Comments Flu Vaccine 3 years and older administered Note: [facility] [id number] No reaction in clinic VIS 02/05/15 given ; Source: New Immunization Record Payers Payer name Insurance type Covered constitution party ID Authoriza tion(s) No Information Social History Type Description Quantity Date Captured Comments Alcohol Use Details Unknown Caffeine Use Details Unknown Tobacco Use Status No Information Smoking Status No Information Sex Female Sexual Orientation Heterosexual Gender Identity Female Chief Complaint And Reason For Visit No Information Reason For Referral Reason For Referral No Information Plan Of Treatment Date Type Action Status Future Order: Radiology Order OB US Nuchal Jose Alejandro, 1 Gest ([id number]), Ordered on: Ordered History Of Present Illness Encounter Date Complaint History Of Prese nt Illness LMP was 06/09/20 17. The patient had 1 previous . Associated symptoms include headache. Pertinent negatives include anorexia, bleeding, breast tenderness, constipation, edema, fatigue, fever, heartburn, irritability, nausea, pelvic pain, spotting, urinary difficulty, vaginal discharge, vomiting. Additional information: discussed BECKER. Functional Status Date Functional Assessmen t No Information Instructions Date Instruction Additional Infor mation nutrition and weight gain jolynn acosta, special diet toxoplasmosis precautions (cats / raw meat) sexual activity exercise indications for ultrasound influenza vaccine environmental / work hazards travel Vitamins HIV and other routine t ests risk factors identified by samantha oscar history Book Genetic Testing childbirth classes / hospital fa cilities seat belt use domestic violence smoking counseling use of any medicatio ns (including supplements, vitamins, herbs, OTC drugs) illicit / recreational drugs alcohol tobacco (ask, advise, assess, as sist and arrange) anticipated course of c are Assessments Type Assessment Date No Information Patient Care Teams Name Effective Dates (start - stop) Status Members No Information
--- OUTSIDE RECORDS SUMMARY | 2024-12-16 12:56 | XMS_ITS | Clinical Summary ---
Author Organization [facility] Address [address] [place] [address] Care Team Providers Care Auto Inspection Specialist Name Role Phone Otoniel Key MD Primary Care Provider Source Comments [facility],non-owned Affiliates and Associated Physician Practices is amultiple site organization consisting of ambulatory clinics and hospital sitesin [place], [place], [place] and [place]. This disclosure is being madepursuant to the Care Everywhere program and may not contain all information available regarding this patient. Last updated 18.[facility] Allergies Active Allergy Reactions Criticality Noted Date [...] on file Legal Sex Female 11:27 AM HVAC SERVICE TECHNICIAN Gender Identity Not on file Sexual Orientation Not on file Last Filed Vital Signs Vital Sign Reading Time Taken Comments Blood Pressure 118/68 08/13/2019 3:05 PM HVAC SERVICE TECHNICIAN Pulse 103 08/13/2019 3:05 PM HVAC SERVICE TECHNICIAN Temperature 36.3 C (97.4 F) 08/13/2019 3:05 PM HVAC SERVICE TECHNICIAN Respiratory Rate - - Oxygen Saturation - - Inhaled Oxygen Concentration - - Weight 85.7 kg (189 lb) 08/13/2019 3:05 PM HVAC SERVICE TECHNICIAN Height 165.1 cm (5' 5) 08/13/2019 3:05 PM HVAC SERVICE TECHNICIAN Body Mass Index 31.45 08/13/2019 3:05 PM HVAC SERVICE TECHNICIAN Plan of Treatment Health Maintenance Due Date Last Done Comments HIV SCREENING 02/23/2011 HEPATITIS C SCREENING 02/19/2014 DTAP/TDAP/TD VACCINES (1 - Tdap) 02/23/2015 HEPATITIS B VACCINE (1 of 3 - 19+ 3-dose series) 02/23/2015 PAP SMEAR 02/23/2017 COVID-19 VACCINE (1 - 2023-2 5 season) [...] complete this topic Insurance MEDICAID - [facility] Care Teams Auto Inspection Specialist Relationship Specialty Start Date End Date Otoniel Key MD [address] [place] [address] PCP - General 01/18/21
--- OUTSIDE RECORDS SUMMARY | 2024-12-16 12:56 | XMS_ITS | Referral Summary ---
Author Organization [facility] Address [address] [place] [id number] Care Team Providers Care Dairy Management Specialist Name Role Phone Dawood New MD Primary Care Provider [phone] Dawood New MD Unavailable Allergies Active Allergy Reactions Criticality Noted Date Comments Cranberry Extract Rash Medium 08/29/2011 Latex Hives Medium 06/22/2021 Medications No known medications Active Problems Problem Noted Date Diagnosed Date Physical exam, annual 07/10/2022 Assessment & Plan (07/10/2022 3:40 PM CASE MANAGEMENT SOCIAL WORKER): Discussed lifestyle modifications, diet and exercise. Routine blood work ordered/reviewed today. Yearly vision and dental examinations. Class 1 obesity without seri ous comorbidity with body mass index (BMI) of 31.0 to 31.9 in adult 07/06/2021 Assessment & Plan (07/10/2022 3:42 PM CASE MANAGEMENT SOCIAL WORKER): Wt Readings from Last 3 Encounters: 07/10/22 [...] else Assessment & Plan (07/06/2021 3:46 PM CASE MANAGEMENT SOCIAL WORKER): HPI: Condition is not at/near goal A&P: Discussed/ordered labs, encouraged healthy, low carbohydrate lifestyle and at least 150min/week of exercise, continue on current regimen Encounter for well woman fay castelan with routine gynecological exam 07/06/2021 Assessment & Plan (07/06/2021 3:20 PM CASE MANAGEMENT SOCIAL WORKER): Discussed lifestyle modifications, diet and exercise. Routine blood work ordered/reviewed today. Yearly vision and dental examinations. Amenorrhea, secondary 06/22/2021 Assessment & Plan (07/18/2021 12:05 PM CASE MANAGEMENT SOCIAL WORKER): Still no period. No other symptoms blood work normal. Will likely need referral for line operator, will wait for pap results. Addendum: Pap showed ACUS with negative HPV. Advised pt she will need repeat pap in 1 year. Would lke referral to OBGYN due to amenorrhea Assessment & Plan (06/22/2021 3:02 PM CASE MANAGEMENT SOCIAL WORKER): Unknown cause, has been going on for 2 months. States that she has been gaining singnificant weight since her last childbirth Recurrent major depressive disorder, in partial remission 06/22/2021 Assessment & Plan (07/10/2022 3:40 PM CASE MANAGEMENT SOCIAL WORKER): Stable - not currently on antidepressives. Doing well otherwise Patient reiterated no suicidal thoughts at this time; take medication as directed; contact 911 and go to the ER if becomes suicidal; discussed side effects of medication with patient; encouraged healthy diet and exericise; encouraged patient to see a counselor Assessment & Plan (06/22/2021 3:06 PM CASE MANAGEMENT SOCIAL WORKER): Patient reiterated no suicidal thoughts at this time; take medication as directed; contact 911 and go to the ER if becomes suicidal; discussed side effects of medication with patient; encouraged healthy diet and exericise; encouraged patient to see a counselor Abnormal weight gain 06/22/2021 Assessment & Plan (07/06/2021 3:45 PM CASE MANAGEMENT SOCIAL WORKER): Weight manamgenet referral placed. Noted with elevated c - peptide. Can consider work up for pcos, consider starting metformin Assessment & Plan (06/22/2021 3:08 PM CASE MANAGEMENT SOCIAL WORKER): Will check lab work, and have patient return for follow up. Is currentl making lifestyle and diet changes, works out daily and continues to have weight gain. Potential galactorrhea but patient is unsure Allodynia 12/06/2012 Chronic daily headache 12/06/2012 Assessment & Plan (06/22/2021 3:06 PM CASE MANAGEMENT SOCIAL WORKER): Headaches doing okay at this time,but will [...] on file Legal Sex Female 3:30 PM CASE MANAGEMENT SOCIAL WORKER Gender Identity Not on file Sexual Orientation Not on file Last Filed Vital Signs Vital Sign Reading Time Taken Comments Blood Pressure 121/74 07/10/2022 3:34 PM CASE MANAGEMENT SOCIAL WORKER Pulse 96 07/10/2022 3:34 PM CASE MANAGEMENT SOCIAL WORKER Temperature 36.4 C (97.5 F) 07/10/2022 3:34 PM CASE MANAGEMENT SOCIAL WORKER Respiratory Rate 18 07/10/2022 3:34 PM CASE MANAGEMENT SOCIAL WORKER Oxygen Saturation 98% 07/10/2022 3:34 PM CASE MANAGEMENT SOCIAL WORKER Inhaled Oxygen Concentration - - Weight 83.9 kg (185 lb) 07/10/2022 3:34 PM CASE MANAGEMENT SOCIAL WORKER Height 163.8 cm (5' 4.49) 07/10/2022 3:34 PM CS T Body Mass Index 31.27 07/10/2022 3:34 PM CASE MANAGEMENT SOCIAL WORKER Plan of Treatment Not on file Procedures Procedure Name Priority Date/Time Associated Diagnosis Comments PAP AND HIGH RISK HPV, REFLEX TO GENOTYPING Routine 07/06/2021 11:01 AM CASE MANAGEMENT SOCIAL WORKER from Last 3 Months or Most Recently Relevant to Health Maintenance Results * (ABNORMAL) Pap and High Risk HPV, reflex to Genotyping (07/06/2021 11:01 AM CASE MANAGEMENT SOCIAL WORKER) Pap test 07/06/2021 11:0 1 AM CASE MANAGEMENT SOCIAL WORKER 07/07/2021 11:01 AM CASE MANAGEMENT SOCIAL WORKER Narrative 07/13/2021 3:17 PM CASE MANAGEMENT SOCIAL WORKER [facility] Department of Pathology [address] [place] [id number] Final Report with Addendum Note to [...] Patient Name: GALE CHENEY Address: [address] [place] [id number] Gender: F : 1995 (Age: 26) Service: Laboratory Location: Lab Hospital #: [id number] Patient Type: Ref Lab Taken: 07/06/2021 Received: [...] determined by the Surgical Pathology Department at [facility] as part of an ongoing air quality consultant program and in compliance with federally mandated [...] characteristics determined by the Surgical Pathology Department [facility]. It has not been cleared or approved by the U. S. Food and Drug Administration. Dawood New MD LAB CYTOLOGY ORDERABLES Final Re sult from Last 3 Months or Most Recently Relevant to Health Maintenance Insurance [facility] [employer] Care Teams Dairy Management Specialist Relationship Specialty Start Date End Date Dawood New MD PCP - General 06/23/21 Dawood New MD Family Medicine 06/23/21
--- OUTSIDE RECORDS SUMMARY | 2024-12-16 12:56 | XMS_ITS | Clinical Summary ---
Author Organization [facility] Address [address] [place] [phone] Care Team Providers Care Lastex Operator Name Role Phone Dawood New MD Primary Care Provider [phone] Dawood New MD Unavailable Allergies Active Allergy Reactions Criticality Noted Date Comments Cranberry Extract Rash Medium 08/29/2011 Latex Hives Medium 06/22/2021 Medications No known medications Active Problems Problem Noted Date Diagnosed Date Physical exam, annual 07/10/2022 Assessment & Plan (07/10/2022 3:40 PM EXHAUST EMISSIONS INSPECTOR): Discussed lifestyle modifications, diet and exercise. Routine blood work ordered/reviewed today. Yearly vision and dental examinations. Class 1 obesity without seri ous comorbidity with body mass index (BMI) of 31.0 to 31.9 in adult 07/06/2021 Assessment & Plan (07/10/2022 3:42 PM EXHAUST EMISSIONS INSPECTOR): Wt Readings from Last 3 Encounters: 07/10/22 [...] else Assessment & Plan (07/06/2021 3:46 PM EXHAUST EMISSIONS INSPECTOR): HPI: Condition is not at/near goal A&P: Discussed/ordered labs, encouraged healthy, low carbohydrate lifestyle and at least 150min/week of exercise, continue on current regimen Encounter for well woman fay castelan with routine gynecological exam 07/06/2021 Assessment & Plan (07/06/2021 3:20 PM EXHAUST EMISSIONS INSPECTOR): Discussed lifestyle modifications, diet and exercise. Routine blood work ordered/reviewed today. Yearly vision and dental examinations. Amenorrhea, secondary 06/22/2021 Assessment & Plan (07/18/2021 12:05 PM EXHAUST EMISSIONS INSPECTOR): Still no period. No other symptoms blood work normal. Will likely need referral for mailing section clerk, will wait for pap results. Addendum: Pap showed ACUS with negative HPV. Advised pt she will need repeat pap in 1 year. Would lke referral to OBGYN due to amenorrhea Assessment & Plan (06/22/2021 3:02 PM EXHAUST EMISSIONS INSPECTOR): Unknown cause, has been going on for 2 months. States that she has been gaining singnificant weight since her last childbirth Recurrent major depressive disorder, in partial remission 06/22/2021 Assessment & Plan (07/10/2022 3:40 PM EXHAUST EMISSIONS INSPECTOR): Stable - not currently on antidepressives. Doing well otherwise Patient reiterated no suicidal thoughts at this time; take medication as directed; contact 911 and go to the ER if becomes suicidal; discussed side effects of medication with patient; encouraged healthy diet and exericise; encouraged patient to see a counselor Assessment & Plan (06/22/2021 3:06 PM EXHAUST EMISSIONS INSPECTOR): Patient reiterated no suicidal thoughts at this time; take medication as directed; contact 911 and go to the ER if becomes suicidal; discussed side effects of medication with patient; encouraged healthy diet and exericise; encouraged patient to see a counselor Abnormal weight gain 06/22/2021 Assessment & Plan (07/06/2021 3:45 PM EXHAUST EMISSIONS INSPECTOR): Weight manamgenet referral placed. Noted with elevated c - peptide. Can consider work up for pcos, consider starting metformin Assessment & Plan (06/22/2021 3:08 PM EXHAUST EMISSIONS INSPECTOR): Will check lab work, and have patient return for follow up. Is currentl making lifestyle and diet changes, works out daily and continues to have weight gain. Potential galactorrhea but patient is unsure Allodynia 12/06/2012 Chronic daily headache 12/06/2012 Assessment & Plan (06/22/2021 3:06 PM EXHAUST EMISSIONS INSPECTOR): Headaches doing okay at this time,but will [...] on file Legal Sex Female 3:30 PM EXHAUST EMISSIONS INSPECTOR Gender Identity Not on file Sexual Orientation Not on file Obstetrics History Last Filed Vital Signs Vital Sign Reading Time Taken Comments Blood Pressure 121/74 07/10/2022 3:34 PM EXHAUST EMISSIONS INSPECTOR Pulse 96 07/10/2022 3:34 PM EXHAUST EMISSIONS INSPECTOR Temperature 36.4 C (97.5 F) 07/10/2022 3:34 PM EXHAUST EMISSIONS INSPECTOR Respiratory Rate 18 07/10/2022 3:34 PM EXHAUST EMISSIONS INSPECTOR Oxygen Saturation 98% 07/10/2022 3:34 PM EXHAUST EMISSIONS INSPECTOR Inhaled Oxygen Concentration - - Weight 83.9 kg (185 lb) 07/10/2022 3:34 PM EXHAUST EMISSIONS INSPECTOR Height 163.8 cm (5' 4.49) 07/10/2022 3:34 PM CS T Body Mass Index 31.27 07/10/2022 3:34 PM EXHAUST EMISSIONS INSPECTOR Plan of Treatment Health Maintenance Due Date [...] season) 2024 11/12/2021, 03/03/2021, 02/10/2021 Influenza Vaccine (Season Ended) 2025 05/02/2022, 04/26/2021, 03/25/2020, Additional history exists Hepatitis B Screening Completed 03/02/2006 , 03/02/2006, 08/16/2005, Additional history exists Procedures Procedure Name Priority Date/Time Associated Diagnosis Comments PAP AND HIGH RISK HPV, REFLEX TO GENOTYPING Routine 07/06/2021 11:01 AM EXHAUST EMISSIONS INSPECTOR from Last 3 Months or Most Recently Relevant to Health Maintenance Results * (ABNORMAL) Pap and High Risk HPV, reflex to Genotyping (07/06/2021 11:01 AM EXHAUST EMISSIONS INSPECTOR) Pap test 07/06/2021 11:0 1 AM EXHAUST EMISSIONS INSPECTOR 07/07/2021 11:01 AM EXHAUST EMISSIONS INSPECTOR Narrative 07/13/2021 3:17 PM EXHAUST EMISSIONS INSPECTOR [facility] Department of Pathology [address] [place], [place] [id number] Final Report with Addendum Note to Patients: [...] the details. Patient Name: GALE CHENEY Address: [address] [place] [address] Gender: F : 1995 (Age: 26) Service: [facility] [id number] Patient Type: Ref Lab Taken: 07/06/2021 Received: [...] by the Surgical Pathology Department at [facility] as part of an ongoing quality assurance supervisor body program and in compliance with federally mandated [...] characteristics determined by the Surgical Pathology Department [facility]. It has not been cleared or approved by the U. S. Food and Drug Administration. Dawood New MD LAB CYTOLOGY ORDERABLES Final Re sult from Last 3 Months or Most Recently Relevant to Health Maintenance Insurance [facility] PL[facility] Care Teams Lastex Operator Relationship Specialty Start Date End Date Dawood New MD PCP - General 06/23/21 Dawood New MD Family Medicine 06/23/21
[2024-12-16 13:06] VITALS: BP 149/84; PULSE 67; RESP 14; O2SAT 99
--- NOTE | 2024-12-16 13:16 | ED_ITS ---
HPI - Recheck/Abnormal Lab/Rx General Chief Complaint: Recheck/Abnormal Lab/Rx Stated Complaint: HTN Time Seen by Provider: 12/16/24 12:37 Source: patient Mode of arrival: ambulatory Limitations: no limitations History of Present Illness HPI narrative: Patient is a 29 y/o female, with PMH of anxiety, migraines, stress-induced seizures, who presents to the ED with c/o hypertension. Patient reports history of hypertension. States she has previously been prescribed hydrochlorothiazide, 12.5 mg daily. She states she has been exercising and eating healthy here lately, has lost some weight. She states over the past few weeks, her blood pressures have been normal when she checks them in the morning, in the 120s to 130s systolic range. She has not been taking her hydrochlorothiazide as such. Today, she checked her blood pressure to be normal this morning. 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 They then checked at 15 minutes later and it was up to 200s over 100s. Was then referred to the ED for further evaluation. Blood pressure upon arrival 151/98. Patient did not take her hydrochlorothiazide today. She does complain of a very mild headache, but states she has history of migraines and this feels similar. She took ibuprofen prior to arrival in reports this is already improving. Otherwise denies dizziness, lightheadedness, vision changes, chest pain, shortness of breath, focal numbness or weakness. Related Data Home Medications ?Medication ?Instructions ?Recorded ?Confirmed ?Last Taken ?Type dextroamphetamine-amphetamine 7.5 7.5 mg PO BID 11/26/24 11/26/24 Unknown History mg tablet (Adderall) trazodone 50 mg tablet mg PO DAILY 11/26/24 11/26/24 Unknown History Allergies Allergy/AdvReac Type Severity Reaction Status Date / Time latex Allergy Severe Hives Verified 12/16/24 12:36 cranberry Allergy Hives Verified 12/16/24 12:36 Review of Systems Review of Systems: All systems reviewed & are unremarkable except as noted in HPI. All systems reviewed & are unremarkable except as noted in HPI and below PMFSH Past Medical History Medical History Obesity (BMI 30.0-34.9) Prolapse of female pelvic organs Bilateral lower abdominal cramping Chronic diarrhea Chronic diarrhea Seizure last seizure in 2016 - stopped meds in 2017 Vaginal delivery x1 Migraine Anxiety Asthma no inhaler for years Surgical History Surgical History History of bilateral tubal ligation 03-11-2018 Previous section x1 History of ear surgery reconstructive surgery History of eye surgery tear duct tubes Family History Family History Father Hypertension Diabetes mellitus Mother Hypertension Anxiety Depression Grandparent Diabetes mellitus Hypertension Anxiety Depression Social History Social History Smoking status: Never smoker Alcohol intake: unknown Substance use: never Substance use type: does not use Do You Feel Safe in your Home?: Yes Lack of Transportation: No Lack of Food: Never True Current Housing: I Have Housing Concerned About Future Housing: No Difficulty Paying Gas/Electric Bills: No Difficulty Paying for Meds: No Currently Unemployed: No Living arrangements: with family Occupation/Education: occupation Gender identity (if verbalized by the patient): Female Spiritual care concerns: No Exam Narrative: GENERAL: Well appearing, obese with BMI of 32.1, non-toxic, in no acute distress. HEAD: Normocephalic, atraumatic. EYES: PERRL/EOMI, conjunctiva clear. No nystagmus RESPIRATORY: Airway patent, respirations nonlabored. Clear to auscultation bilaterally, no rales, rhonchi, wheezing. CARDIOVASCULAR: Regular rate and rhythm without murmurs, rubs, or gallops. MUSCULOSKELETAL: Moves all extremities. No gross deformities. SKIN: Warm, dry, normal color. NEURO: A&O X3. Speech clear. Cranial nerves II-XII grossly intact. Steady gait. No ataxic movements. No focal deficits. PSYCHIATRIC: Mildly anxious appearing. Normal interaction. Course Vital Signs Vital signs: Vital Signs Temperature 98.2 F 12/16/24 12:29 Pulse Rate 68 12/16/24 12:29 Respiratory Rate 14 12/16/24 12:29 Blood Pressure 151/98 H 12/16/24 12:29 Pulse Oximetry 99 12/16/24 12:29 Oxygen Delivery Room Air 12/16/24 12:29 Temperature 98.2 F 12/16/24 12:29 Pulse Rate 68 12/16/24 13:31 Respiratory Rate 17 12/16/24 13:31 Blood Pressure 140/99 H 12/16/24 13:31 Pulse Oximetry 100 12/16/24 13:31 Oxygen Delivery Room Air 12/16/24 12:29 MDM - Recheck/Abnormal Lab/Rx MDM Narrative Medical decision making narrative: Patient presented to ED with transient elevated blood pressure today while at nursing school. History of hypertension, but has recently lost weight and has not required her blood pressure medications over the past few weeks. States her blood pressures have been within normal range over the past few weeks when she checks them in the morning and at night. Blood pressure upon arrival 151/98. Patient does report history of migraines and complains of a mild headache currently. She did take ibuprofen prior to arrival reports this is already improving. She is otherwise denying any red flag symptoms. Denies chest pain, shortness breath, dizziness, lightheadedness, vision changes, focal numbness or weakness. Neurologically intact on exam. Blood pressure did improve into the 130s without intervention. Advised no indication for workup at this time given asymptomatic hypertension. Advised likely some stress related to transient elevated blood pressure earlier today. Reassuring that blood pressure normalized on its own. Advised patient have close follow-up with her primary care doctor to discuss blood pressure issues. Advised to continue monitoring blood pressure at home. Given strict return precautions. She is in agreement with plan. Feels comfortable going home. Discharged in stable condition. Vital signs stable at time of D/C. Medical Records Attestation: I reviewed the patient's medical records. Discharge Plan Discharge Clinical Impression: Elevated blood pressure reading with diagnosis of hypertension Patient Disposition: Home Condition: Stable Instructions: Antibiotic Form, Chronic Hypertension (ED) Additional Instructions: Continue to monitor her blood pressures at home. Follow-up closely with your primary care doctor for further evaluation. Return to the ED for worsening or severe symptoms, persistently elevated blood pressures, numbness or weakness of arm or leg, severe pain, chest pain, difficulty breathing, or any other symptoms of concern. Patient Language: Nicaraguan Prescriptions: No Action trazodone 50 mg tablet PO DAILY dextroamphetamine-amphetamine [Adderall] 7.5 mg tablet 7.5 mg PO BID Rx Instructions: administer doses at least 4-6 hours apart ergocalciferol (vitamin D2) 1,250 mcg (50,000 unit) capsule 1,250 mcg PO WEEKLY 90 Days Qty: 13 0RF hydrochlorothiazide 25 mg tablet 25 mg PO DAILY Qty: 60 0RF metformin 500 mg tablet extended release 24 hr 500 mg PO BID Qty: 60 2RF Follow-up/Referrals: PHYSICIAN NOT ON STAFF,NONSTAFF [Primary Care Provider] - Stand Alone Forms: Work/School Release IP Time of Disposition: 13:17
[2024-12-16 13:31] VITALS: BP 140/99; PULSE 68; RESP 17; O2SAT 100
--- OUTSIDE RECORDS SUMMARY | 2024-12-16 13:51 | XMS_ITS | Clinical Summary ---
Author Organization [facility] Address [address] [place] [address] Care Team Providers Care Jewel Hole Cornerer Name Role Phone Otoniel Key MD Primary Care Provider [phone] [facility],non-owned Affiliates and Associated Physician Practices is amultiple site organization consisting of ambulatory clinics and hospital sitesin [place], [place], [place] and [place]. This disclosure is being madepursuant to the Care Everywhere program and may not contain all information available regarding this patient. Last updated 18.[facility] Allergies Active Allergy Reactions Criticality Noted Date [...] on file Legal Sex Female 11:27 AM SURVEY STATISTICIAN Gender Identity Not on file Sexual Orientation Not on file Last Filed Vital Signs Vital Sign Reading Time Taken Comments Blood Pressure 118/68 08/13/2019 3:05 PM SURVEY STATISTICIAN Pulse 103 08/13/2019 3:05 PM SURVEY STATISTICIAN Temperature 36.3 C (97.4 F) 08/13/2019 3:05 PM SURVEY STATISTICIAN Respiratory Rate - - Oxygen Saturation - - Inhaled Oxygen Concentration - - Weight 85.7 kg (189 lb) 08/13/2019 3:05 PM SURVEY STATISTICIAN Height 165.1 cm (5' 5) 08/13/2019 3:05 PM SURVEY STATISTICIAN Body Mass Index 31.45 08/13/2019 3:05 PM SURVEY STATISTICIAN Plan of Treatment Health Maintenance Due Date [...] complete this topic Insurance [place]ICA[place] - [place] [facility] Care Teams Jewel Hole Cornerer Relationship Specialty Start Date End Date Otoniel Key MD [address] [place] [address] PCP - General 01/18/21
--- OUTSIDE RECORDS SUMMARY | 2024-12-16 13:51 | XMS_ITS | Referral Summary ---
Author Organization [facility] Address [address] [place] [address] Care Team Providers Care Facilities Coordinator Name Role Phone Dawood New MD Primary Care Provider [phone] Dawood New MD Unavailable Allergies Active Allergy Reactions Criticality Noted Date Comments Cranberry Extract Rash Medium 08/29/2011 Latex Hives Medium 06/22/2021 Medications No known medications Active Problems Problem Noted Date Diagnosed Date Physical exam, annual 07/10/2022 Assessment & Plan (07/10/2022 3:40 PM DESPATCHING AND RECEIVING CLERK): Discussed lifestyle modifications, diet and exercise. Routine blood work ordered/reviewed today. Yearly vision and dental examinations. Class 1 obesity without seri ous comorbidity with body mass index (BMI) of 31.0 to 31.9 in adult 07/06/2021 Assessment & Plan (07/10/2022 3:42 PM DESPATCHING AND RECEIVING CLERK): Wt Readings from Last 3 Encounters: 07/10/22 [...] else Assessment & Plan (07/06/2021 3:46 PM DESPATCHING AND RECEIVING CLERK): HPI: Condition is not at/near goal A&P: Discussed/ordered labs, encouraged healthy, low carbohydrate lifestyle and at least 150min/week of exercise, continue on current regimen Encounter for well woman fay castelan with routine gynecological exam 07/06/2021 Assessment & Plan (07/06/2021 3:20 PM DESPATCHING AND RECEIVING CLERK): Discussed lifestyle modifications, diet and exercise. Routine blood work ordered/reviewed today. Yearly vision and dental examinations. Amenorrhea, secondary 06/22/2021 Assessment & Plan (07/18/2021 12:05 PM DESPATCHING AND RECEIVING CLERK): Still no period. No other symptoms blood work normal. Will likely need referral for supervisor sample preparation, will wait for pap results. Addendum: Pap showed ACUS with negative HPV. Advised pt she will need repeat pap in 1 year. Would lke referral to OBGYN due to amenorrhea Assessment & Plan (06/22/2021 3:02 PM DESPATCHING AND RECEIVING CLERK): Unknown cause, has been going on for 2 months. States that she has been gaining singnificant weight since her last childbirth Recurrent major depressive disorder, in partial remission 06/22/2021 Assessment & Plan (07/10/2022 3:40 PM DESPATCHING AND RECEIVING CLERK): Stable - not currently on antidepressives. Doing well otherwise Patient reiterated no suicidal thoughts at this time; take medication as directed; contact 911 and go to the ER if becomes suicidal; discussed side effects of medication with patient; encouraged healthy diet and exericise; encouraged patient to see a counselor Assessment & Plan (06/22/2021 3:06 PM DESPATCHING AND RECEIVING CLERK): Patient reiterated no suicidal thoughts at this time; take medication as directed; contact 911 and go to the ER if becomes suicidal; discussed side effects of medication with patient; encouraged healthy diet and exericise; encouraged patient to see a counselor Abnormal weight gain 06/22/2021 Assessment & Plan (07/06/2021 3:45 PM DESPATCHING AND RECEIVING CLERK): Weight manamgenet referral placed. Noted with elevated c - peptide. Can consider work up for pcos, consider starting metformin Assessment & Plan (06/22/2021 3:08 PM DESPATCHING AND RECEIVING CLERK): Will check lab work, and have patient return for follow up. Is currentl making lifestyle and diet changes, works out daily and continues to have weight gain. Potential galactorrhea but patient is unsure Allodynia 12/06/2012 Chronic daily headache 12/06/2012 Assessment & Plan (06/22/2021 3:06 PM DESPATCHING AND RECEIVING CLERK): Headaches doing okay at this time,but will [...] on file Legal Sex Female 3:30 PM DESPATCHING AND RECEIVING CLERK Gender Identity Not on file Sexual Orientation Not on file Last Filed Vital Signs Vital Sign Reading Time Taken Comments Blood Pressure 121/74 07/10/2022 3:34 PM DESPATCHING AND RECEIVING CLERK Pulse 96 07/10/2022 3:34 PM DESPATCHING AND RECEIVING CLERK Temperature 36.4 C (97.5 F) 07/10/2022 3:34 PM DESPATCHING AND RECEIVING CLERK Respiratory Rate 18 07/10/2022 3:34 PM DESPATCHING AND RECEIVING CLERK Oxygen Saturation 98% 07/10/2022 3:34 PM DESPATCHING AND RECEIVING CLERK Inhaled Oxygen Concentration - - Weight 83.9 kg (185 lb) 07/10/2022 3:34 PM DESPATCHING AND RECEIVING CLERK Height 163.8 cm (5' 4.49) 07/10/2022 3:34 PM CS T Body Mass Index 31.27 07/10/2022 3:34 PM DESPATCHING AND RECEIVING CLERK Plan of Treatment Not on file Procedures Procedure Name Priority Date/Time Associated Diagnosis Comments PAP AND HIGH RISK HPV, REFLEX TO GENOTYPING Routine 07/06/2021 11:01 AM DESPATCHING AND RECEIVING CLERK from Last 3 Months or Most Recently Relevant to Health Maintenance Results * (ABNORMAL) Pap and High Risk HPV, reflex to Genotyping (07/06/2021 11:01 AM DESPATCHING AND RECEIVING CLERK) Pap test 07/06/2021 11:0 1 AM DESPATCHING AND RECEIVING CLERK 07/07/2021 11:01 AM DESPATCHING AND RECEIVING CLERK Narrative 07/13/2021 3:17 PM DESPATCHING AND RECEIVING CLERK [facility] Department of Pathology [address] [place] [id number] Final Report with Addendum Note to [...] Patient Name: GALE CHENEY Address: [address] [place] [id number] Gender: F : 1995 (Age: 26) Service: Laboratory Location: Lab Hospital #: [id number] Patient Type: Ref Lab Taken: 07/06/2021 Received: [...] determined by the Surgical Pathology Department at [facility] as part of an ongoing nurse quality program and in compliance with federally mandated [...] characteristics determined by the Surgical Pathology Department [facility]. It has not been cleared or approved by the U. S. Food and Drug Administration. Dawood New MD LAB CYTOLOGY ORDERABLES Final Re sult from Last 3 Months or Most Recently Relevant to Health Maintenance Insurance [facility] CHOICE PLUS Care Teams Facilities Coordinator Relationship Specialty Start Date End Date Dawood New MD PCP - General 06/23/21 Dawood New MD Family Medicine 06/23/21
--- OUTSIDE RECORDS SUMMARY | 2024-12-16 13:51 | XMS_ITS | Clinical Summary ---
Author Organization [facility] Address [address] [place] [address] Care Team Providers Care Optometry Assistant Name Role Phone Dawood New MD Primary Care Provider [phone] Dawood New MD Unavailable Allergies Active Allergy Reactions Criticality Noted Date Comments Cranberry Extract Rash Medium 08/29/2011 Latex Hives Medium 06/22/2021 Medications No known medications Active Problems Problem Noted Date Diagnosed Date Physical exam, annual 07/10/2022 Assessment & Plan (07/10/2022 3:40 PM PERFORMANCE IMPROVEMENT COORDINATOR): Discussed lifestyle modifications, diet and exercise. Routine blood work ordered/reviewed today. Yearly vision and dental examinations. Class 1 obesity without seri ous comorbidity with body mass index (BMI) of 31.0 to 31.9 in adult 07/06/2021 Assessment & Plan (07/10/2022 3:42 PM PERFORMANCE IMPROVEMENT COORDINATOR): Wt Readings from Last 3 Encounters: 07/10/22 [...] else Assessment & Plan (07/06/2021 3:46 PM PERFORMANCE IMPROVEMENT COORDINATOR): HPI: Condition is not at/near goal A&P: Discussed/ordered labs, encouraged healthy, low carbohydrate lifestyle and at least 150min/week of exercise, continue on current regimen Encounter for well woman fay castelan with routine gynecological exam 07/06/2021 Assessment & Plan (07/06/2021 3:20 PM PERFORMANCE IMPROVEMENT COORDINATOR): Discussed lifestyle modifications, diet and exercise. Routine blood work ordered/reviewed today. Yearly vision and dental examinations. Amenorrhea, secondary 06/22/2021 Assessment & Plan (07/18/2021 12:05 PM PERFORMANCE IMPROVEMENT COORDINATOR): Still no period. No other symptoms blood work normal. Will likely need referral for hearing aid repairer, will wait for pap results. Addendum: Pap showed ACUS with negative HPV. Advised pt she will need repeat pap in 1 year. Would lke referral to OBGYN due to amenorrhea Assessment & Plan (06/22/2021 3:02 PM PERFORMANCE IMPROVEMENT COORDINATOR): Unknown cause, has been going on for 2 months. States that she has been gaining singnificant weight since her last childbirth Recurrent major depressive disorder, in partial remission 06/22/2021 Assessment & Plan (07/10/2022 3:40 PM PERFORMANCE IMPROVEMENT COORDINATOR): Stable - not currently on antidepressives. Doing well otherwise Patient reiterated no suicidal thoughts at this time; take medication as directed; contact 911 and go to the ER if becomes suicidal; discussed side effects of medication with patient; encouraged healthy diet and exericise; encouraged patient to see a counselor Assessment & Plan (06/22/2021 3:06 PM PERFORMANCE IMPROVEMENT COORDINATOR): Patient reiterated no suicidal thoughts at this time; take medication as directed; contact 911 and go to the ER if becomes suicidal; discussed side effects of medication with patient; encouraged healthy diet and exericise; encouraged patient to see a counselor Abnormal weight gain 06/22/2021 Assessment & Plan (07/06/2021 3:45 PM PERFORMANCE IMPROVEMENT COORDINATOR): Weight manamgenet referral placed. Noted with elevated c - peptide. Can consider work up for pcos, consider starting metformin Assessment & Plan (06/22/2021 3:08 PM PERFORMANCE IMPROVEMENT COORDINATOR): Will check lab work, and have patient return for follow up. Is currentl making lifestyle and diet changes, works out daily and continues to have weight gain. Potential galactorrhea but patient is unsure Allodynia 12/06/2012 Chronic daily headache 12/06/2012 Assessment & Plan (06/22/2021 3:06 PM PERFORMANCE IMPROVEMENT COORDINATOR): Headaches doing okay at this time,but will [...] on file Legal Sex Female 3:30 PM PERFORMANCE IMPROVEMENT COORDINATOR Gender Identity Not on file Sexual Orientation Not on file Obstetrics History Last Filed Vital Signs Vital Sign Reading Time Taken Comments Blood Pressure 121/74 07/10/2022 3:34 PM PERFORMANCE IMPROVEMENT COORDINATOR Pulse 96 07/10/2022 3:34 PM PERFORMANCE IMPROVEMENT COORDINATOR Temperature 36.4 C (97.5 F) 07/10/2022 3:34 PM PERFORMANCE IMPROVEMENT COORDINATOR Respiratory Rate 18 07/10/2022 3:34 PM PERFORMANCE IMPROVEMENT COORDINATOR Oxygen Saturation 98% 07/10/2022 3:34 PM PERFORMANCE IMPROVEMENT COORDINATOR Inhaled Oxygen Concentration - - Weight 83.9 kg (185 lb) 07/10/2022 3:34 PM PERFORMANCE IMPROVEMENT COORDINATOR Height 163.8 cm (5' 4.49) 07/10/2022 3:34 PM CS T Body Mass Index 31.27 07/10/2022 3:34 PM PERFORMANCE IMPROVEMENT COORDINATOR Plan of Treatment Health Maintenance Due Date [...] REFLEX TO GENOTYPING Routine 07/06/2021 11:01 AM PERFORMANCE IMPROVEMENT COORDINATOR from Last 3 Months or Most Recently Relevant to Health Maintenance Results * (ABNORMAL) Pap and High Risk HPV, reflex to Genotyping (07/06/2021 11:01 AM PERFORMANCE IMPROVEMENT COORDINATOR) Pap test 07/06/2021 11:0 1 AM PERFORMANCE IMPROVEMENT COORDINATOR 07/07/2021 11:01 AM PERFORMANCE IMPROVEMENT COORDINATOR Narrative 07/13/2021 3:17 PM PERFORMANCE IMPROVEMENT COORDINATOR [facility] Department of Pathology [address] [place], [place] [id number] Final Report with Addendum Note to Patients: [...] the details. Patient Name: GALE CHENEY Address: [address] [place] [address] Gender: F : 1995 (Age: 26) Service: Laboratory Location: Lab [facility] #: [id number] Patient Type: Ref Lab Taken: 07/06/2021 Received: [...] determined by the Surgical Pathology Department at [facility] as part of an ongoing supervisor vendor quality program and in compliance with federally [...] characteristics determined by the Surgical Pathology Department [facility]. It has not been cleared or approved by the U. S. Food and Drug Administration. Dawood New MD LAB CYTOLOGY ORDERABLES Final Re sult from Last 3 Months or Most Recently Relevant to Health Maintenance Insurance [facility] CHOICE PLUS [facility] HMO/PPO Address: [facility] [address] [place] [address] Care Teams Optometry Assistant Relationship Specialty Start Date End Date Dawood New MD PCP - General 06/23/21 Dawood New MD Family Medicine 06/23/21
--- OUTSIDE RECORDS SUMMARY | 2024-12-16 13:51 | XMS_ITS | Continuity of Care Document ---
Author Organization [facility] Address [id number] [address] Phone Care Team Providers Care Leather Coverer Name Role Phone Health, Community Unavailable Unavailable [...] GROUP & RHO(D) TYP (PP $10.25)CPTs 8 [phone] ANTIBODY SCREEN COMPLETE CBC W/AUTO DIFF WBC HEPATITIS B SURFACE AG EIA HEPATITIS C AB TEST HIV ANTIGEN W/HIV ANTIBODIES RPR RUBELLA ANTIBODY ASSAY THYROID STIM HORMONE Varicella-Zoster V AB, IgG ROUTINE VENIPUNCTURE URINALYSIS AUTO W/O SCOPE Drug Tests Presumptive Any Number Of Zachariah g Classes URINE TEST URINE CULTURE, ROUTINE CPT 51113 2017 NO CHARGE Community Health Worker Patient Face To Face NO CHARGE Advance Directives Directive Yes / No Effective Date File Name No Information Encounters Encounter Description Practice Location Reason(s) For Visit Diagnoses Date Provider Providers Copied on Encounter [facility], [id number]- [place], [place], [address], [place] tel:[phone] Family Medicine F1 No Information [facility]. [address], [place], [address], [place]. tel:[phone] [facility], [id number]- [place], [place], [address], [place] tel:[phone] [facility] F1 No Information 8 Kenny Bhagat. [address], [place], [address], [place]. tel:[phone] Referring Provider: Leola Cox , [address] [place], [address] . tel:[phone] [facility], [id number]- [place], [place], [address], [place] tel:[phone] Family Medicine F1 No Information 8 [facility]. [address], [place], [address], [place]. tel:[phone] [facility], [id number]- [place], [address], [place] tel:[phone] Family Medicine F1 Encntr screen for infections w sexl mode of transmissEncounte r for screening for malignant neoplasm of cervix 8 Kenny Bhagat. [address], [place], [address], [place]. tel:[phone] Referring Provider: Leola Cox , [address] [place], [address] . tel:[phone] OFFICE/OUTPA TIENT VISIT, [facility], [id number]- [place], [place], [address], [place] tel:[phone] [facility] F1 (chief complaint) Encntr screen for infections w sexl mode of transmissEncounte r for screening for malignant neoplasm of cervixEncntr for suprvsn of normal preg, unsp, first trimesterEncounte r for screening for nuchal translucencyEncnt r for rides supervisor exam (general) (routine) w/o abn findingsEncntr for rides supervisor exam (general) (routine) w/o abn findings Mar-0 8-201 8 Kenny Bhagat. [address], [place], [address], [place]. tel:[phone] Referring Provider: Leola Cox , [address] [facility] [facility], [address] . tel:[phone] [facility], [id number], [address], [place] tel:[phone] Family Medicine Encntr for suprvsn of normal preg, unsp, first trimester Mar-0 8-201 8 Kenny Bhagat. [address] [place], [place], [address], [place]. tel:[phone] Referring Provider: Leola Cox , [address] [facility] [place], [address] . tel:[phone] [facility], [id number] [place], [address], [place] tel:[phone] Family Medicine F1 Amenorrhea, unspecified Mar-0 8-201 8 Kenny Bhagat. [address] [place], [place], [address], [place]. tel:[phone] Referring Provider: Leola Cox , [address] [place], [address] . tel:[phone] [facility], [id number]- [facility], [place], [place], [address], [place] tel:[phone] [place] [address] No Information No Information [facility], [id number] [place], [address], [place] tel:[phone] Family Medicine F1 No Information [facility]. [address], [place], [address], [place]. tel:[phone] [facility], [id number] [place], [address], [place] tel:[phone] [place] [address] No Information Tim Hurtado. [address], [place], [address], [place]. tel:[phone] Referring Provider: Genesis Dumont, [address] [place], [address] . tel:[phone] Family History Family Member Type Diagnosis Age [...] Vaccine 3 years and older administered [place]: [facility] [place] [id number] No reaction in clinic VIS 02/05/15 given ; Source: New Immunization Record Payers Payer name Insurance type Covered alliance party ID Authoriza tion(s) No Information Social [...] OB US Nuchal Jose Alejandro, 1 Gest ([id number]), Ordered on: Ordered History Of Present Illness [...] Information Instructions Date Instruction Additional Infor mation anticipated course of c are nutrition and weight gain jolynn acosta, special diet toxoplasmosis precautions (cats / raw meat) sexual activity exercise indications for ultrasound influenza vaccine environmental / work hazards travel tobacco (ask, advise, assess, as sist and arrange) alcohol illicit / recreational drugs use of any medicatio ns (including supplements, vitamins, herbs, OTC drugs) smoking counseling domestic violence seat belt use childbirth classes / hospital fa cilities Genetic Testing Book Vitamins HIV and other routine t ests risk factors identified by samantha oscar history Assessments Type Assessment Date No Information Patient Care Teams Name Effective Dates (start - stop) Status Members No Information
== END 2024-12-16 13:32 | disposition home or self-care (01) ==
LOC: ANHED 13:18
PROVIDERS: Emergency Provider Physician Assistant
DX: I10 Essential (primary) hypertension (principal); F41.9 Anxiety disorder, unspecified; E66.9 Obesity, unspecified; Z68.32 Body mass index [BMI] 32.0-32.9, adult; Z79.899 Other long term (current) drug therapy
CPT/HCPCS: 99281

== ENCOUNTER 2024-12-19 15:10 | Outpatient (CLI) | payer OTHER, SELFPAY ==
--- NOTE | 2024-12-19 15:30 | ECG_ITS ---
Test Date: 2024-12-19 15:34:59 Measurements Intervals Oley Rate: 73 P: 55 MO: 146 QRS: 63 QRSD: 90 T: 35 QT: 385 QTc: 425 Interpretive Statements SINUS RHYTHM NORMAL ECG Compared to ECG 10/21/2024 16:06:31 No significant changes Electronically Signed On 12-19-2024 15:51:40 CDT by Ran Cook D.O.
[2024-12-19 15:32] LABS: Basophils Absolute Auto 0.04 K/mm3 (0.00-0.10); Basophils Percent Auto 0.4 % (0.0-1.0); Eosinophils Absolute Auto 0.06 K/mm3 (0.02-0.50); Eosinophils Percent Auto 0.7 % (1.0-6.0); Hematocrit 39.6 % (35.0-49.0); Hemoglobin 13.9 g/dL (12.0-15.0); Immature Granulocyte Absolute 0.02 K/mm3 (0.00-0.00); Immature Granulocyte Percent A 0.2 % (0.0-0.0); Lymphocytes Absolute Auto 2.18 K/mm3 (1.10-4.50); Lymphocytes Percent Auto 24.1 % (18.0-42.0); Mean Corpuscular HGB Conc 35.1 g/dL (32-36); Mean Corpuscular Hemoglobin 29.5 pg (27.0-31.0); Mean Corpuscular Volume 84.1 fL (78.0-102.0); Mean Platelet Volume 9.9 fl (9.2-11.8); Monocytes Absolute Auto 0.59 K/mm3 (0.10-0.90); Monocytes Percent Auto 6.5 % (2.0-11.0); Neutrophils Absolute Auto 6.15 K/mm3 (1.70-7.20); Neutrophils Percent Auto 68.1 % (50.0-70.0); Platelet Count Result 332 K/mm3 (150-420); Red Blood Count 4.71 M/mm3 (4.20-5.40); Red Cell Distribution Width 12.2 % (11.6-14.4)
[2024-12-19 15:48] LABS: Alanine Aminotransferase 38 U/L (6-35); Albumin Level 4.6 g/dL (3.5-5.1); Alkaline Phosphatase 51 U/L (38-126); Anion Gap 8 mmol/L (4-12); Aspartate Amino Transferase 33 U/L (14-36); Bilirubin,Total 0.6 mg/dL (0.2-1.3); Blood Urea Nitrogen 5 mg/dL (7-17); Carbon Dioxide 28 mmol/L (22-30); Chloride 105 mmol/L (98-107); Cholesterol 198 mg/dL (0-200); Estimated Glomerular Filt Rate > 60; Glucose 102 mg/dL (65-110); HDL Direct 39 mg/dL; LDL Cholesterol Calculated 121 mg/dL (<130); Osmolality Calculated 289 mOsm/kg (285-295); Potassium 3.4 mmol/L (3.4-5.0); Sodium 141 mmol/L (137-145); Total Protein 7.7 g/dL (6.3-8.2); Triglycerides 188 mg/dL (<150)
[2024-12-19 16:01] LABS: Troponin I < 0.012 ng/mL (0.000-0.034)
[2024-12-19 17:00] LABS: Vitamin D 25 Hydroxy 32.7 ng/mL
== END 2024-12-19 15:11 | disposition home or self-care (01) ==
LOC: CHSLAB 15:12
PROVIDERS: PCP Nurse Practitioner Family; Visit Provider Nurse Practitioner Family
DX: Z00.00 Encounter for general adult medical examination without abnormal findings (principal); E55.9 Vitamin D deficiency, unspecified; E78.00 Pure hypercholesterolemia, unspecified
CPT/HCPCS: 36415; 80053; 80061; 82306; 84443; 84484; 85025; 93005

== ENCOUNTER 2025-04-21 17:51 | Emergency (ER) | payer OTHER, SELFPAY ==
--- NOTE | ~2025-04-21 | XR_ITS ---
XR chest 2V HOSTORY: cp COMPARISON:[ None] FINDINGS: Frontal and lateral views of the chest were obtained. The lungs are clear. The heart size is normal in size. Pulmonary vasculature is unremarkable. Osseous structures are intact. IMPRESSION: No acute lung findings.] [ ] Reviewed, dictated and finalized at location S.
[2025-04-21 17:51] VITALS: BP 135/92; PULSE 90; RESP 18; TEMP 36.4; O2SAT 98
--- NOTE | 2025-04-21 17:52 | ECG_ITS ---
Test Date: 2025-04-21 17:56:13 Measurements Intervals Valier Rate: 94 P: 32 DE: 151 QRS: 19 QRSD: 94 T: -6 QT: 372 QTc: 467 Interpretive Statements SINUS RHYTHM CONSIDER INFERIOR INFARCT, AGE INDETERMINATE ABNORMAL ECG Compared to ECG 12/19/2024 15:34:59 No significant changes Electronically Signed On 04-21-2025 20:15:27 CDT by Ran Cook D.O.
--- NOTE | 2025-04-21 18:02 | ED_ITS ---
HPI - Chest Pain General Chief Complaint: Chest Pain Stated Complaint: CHEST PAIN Time Seen by Provider: 04/21/25 18:01 Source: patient and family Mode of arrival: ambulatory Limitations: no limitations History of Present Illness HPI narrative: Patient is a 30-year-old female with left-sided chest pain that radiates to the back over the past 2 days. She started pain last night and it is gone into the morning. Mostly continuous. The pain is sharp and squeezing like with pressure. Shortness of breath only occurs due to the pain and it catches her breath. No nausea vomiting or diarrhea. No abdominal pain. History of GERD. MD complaint: chest pain and chest heaviness Pertinent past history: other (GERD) Timing of current episode: constant, increasing and still present Prior episodes: No Onset: during rest, during exertion and awoke with symptoms Pain location: substernal and left chest Pain radiation: back Severity: moderate Pain scale (0-10): 5 Quality: tightness, heaviness and sharp Relieving factors: nothing Exacerbating factors: exertion, inspiration, palpation and movement Context: other (Patient has worsening left-sided chest pain that is squeezing and sharp in nature that radiates to the back over the past 2 days) Associated symptoms: other (None) Treatment prior to arrival: none Risk Factors Coronary artery disease risk factors: none Thoracic aortic dissection risk factors: none Related Data On Oral Contraceptives: No Home Medications ?Medication ?Instructions ?Recorded ?Confirmed ?Last Taken ?Type trazodone 50 mg tablet mg PO DAILY 11/26/24 5 Unknown History bupropion HCl 100 mg tablet,12 hr 100 mg PO BID 03/16/25 Unknown History sustained-release (Wellbutrin SR) Allergies Allergy/AdvReac Type Severity Reaction Status Date / Time latex Allergy Severe Hives Verified 04/21/25 18:01 cranberry Allergy Hives Verified 04/21/25 18:01 Review of Systems 2 Review of Systems: All systems reviewed & are unremarkable except as noted in HPI and below Constitutional: Constitutional: Reports no additional constitutional complaints Eyes: Eyes: Reports no additional eye complaints ENT: Reports system reviewed and no additional complaints, except as documented Cardiovascular: Cardiovascular: Reports no additional cardiovascular complaints Respiratory: Respiratory: Reports no additional respiratory complaints Gastrointestinal: Gastrointestinal: Reports no additional gastrointestinal complaints Genitourinary: Genitourinary: Reports no additional female genitourinary complaints Musculoskeletal: Musculoskeletal: Reports no additional musculoskeletal complaints Integumentary/Breasts: Skin/Breast: Reports system reviewed and no additional complaints, except as docu Neurologic: Reports system reviewed and no additional complaints, except as documented Psychiatric: Psychiatric: Reports no additional psychiatric complaints Endocrine: Endocrine: Reports no additional endocrine complaints Hematologic/Lymphatic: Hematologic/Lymphatic: Reports no additional hematologic/lymphatic complaints Allergic/Immunologic: Allergic/Immunologic: Reports no additional allergic/immunologic complaints PMFSH Past Medical History Medical History Obesity (BMI 30.0-34.9) Prolapse of female pelvic organs Bilateral lower abdominal cramping Chronic diarrhea Chronic diarrhea Seizure last seizure in 2015 - stopped meds in 2017 Vaginal delivery x1 Migraine Anxiety Asthma no inhaler for years Surgical History Surgical History History of bilateral tubal ligation 03-11-2018 Previous section x1 History of ear surgery reconstructive surgery History of eye surgery tear duct tubes Family History Family History Father Hypertension Diabetes mellitus Mother Hypertension Anxiety Depression Grandparent Diabetes mellitus Hypertension Anxiety Depression Social History Social History Smoking status: Never smoker Alcohol intake: unknown Substance use: never Substance use type: does not use Do You Feel Safe in your Home?: Yes Lack of Transportation: No Lack of Food: Never True Current Housing: I Have Housing Concerned About Future Housing: No Difficulty Paying Gas/Electric Bills: No Difficulty Paying for Meds: No Currently Unemployed: No Living arrangements: with family Occupation/Education: occupation Gender identity (if verbalized by the patient): Female Spiritual care concerns: No Exam 2 Const: General: healthy appearing Nutritional Appearance: well nourished Orientation/consciousness: patient oriented x3 HENMT: Head: normal to inspection Ears: external ears normal F serafin/Nose/Sinus: Normal external nose present Eyes: Conjunctivae: conjunctivae normal Pupils: Equal, round and reactive pupils present EOM: EOMs intact bilaterally Neck: Neck: normal visual inspection Chest: Chest palpation & inspection: normal inspection of the chest Other: Tender left 2nd 3rd and 4th costal margin to palpation and pressure reproducing the same chest pain that patient complains about having at this time Resp: Effort & Inspection: normal respiratory effort and not labored A uscultation: clear to auscultation bilaterally and no crackles Cardio: Rate: regular rate Rhythm: regular rhythm Heart sounds: no murmurs GI: Inspection: non-distended GI Palp: Yes Soft to palpation and No Tenderness to palpation present (GI) Auscultation: normal bowel sounds : General: Yes bladder normal to palpation Back/Spine/Pelvis: Back: no CVA tenderness Skin: General skin exam: normal color Rashes: no rashes Wounds: no wounds Neuro: General: patient oriented x3, moves all extremities and no meningeal signs Extrem: General: normal to inspection, no clubbing, cyanosis or edema and no pedal edema Psych: Mental Status: mental status grossly normal Affect: normal affect Attitude: cooperative Course Vital Signs Vital signs: Vital Signs Temperature 36.4 C L 04/21/25 17:51 Pulse Rate 90 04/21/25 17:51 Respiratory Rate 18 04/21/25 17:51 Blood Pressure 135/92 H 04/21/25 17:51 Pulse Oximetry 98 04/21/25 17:51 Oxygen Delivery Room Air 04/21/25 17:51 Temperature 36.7 C 04/21/25 19:01 Pulse Rate 86 04/21/25 19:01 Respiratory Rate 20 04/21/25 19:01 Blood Pressure 123/89 04/21/25 19:01 Pulse Oximetry 98 04/21/25 19:01 Oxygen Delivery Room Air 04/21/25 19:01 MDM - Chest Pain MDM Narrative Medical decision making narrative: Patient is a 30-year-old female with left-sided chest pain over the past 2 days. Reproducible. Cardiac workup. Chest x-ray. Toradol. Lab Data Attestation: I reviewed the patient's lab results. 04/21/25 18:31 04/21/25 18:31 Labs: Lab Results 04/21/25 04/21/25 Range/Units 18:31 19:18 WBC 8.6 (4.8-10.8) K/mm3 RBC 4.18 L (4.20-5.40) M/mm3 Hgb 12.5 (12.0-15.0) g/dL Hct 35.5 (35.0-49.0) % MCV 84.9 (78.0-102.0) fL MCH 29.9 (27.0-31.0) pg MCHC 35.2 (32-36) g/dL RDW 12.3 (11.6-14.4) % Plt Count 271 (150-420) K/mm3 MPV 9.5 (9.2-11.8) fl Immature Gran % (Auto) 0.2 H (0.0-0.0) % Neut % (Auto) 69.5 (50.0-70.0) % Lymph % (Auto) 21.8 (18.0-42.0) % [place] % (Auto) 7.2 (2.0-11.0) % Eos % (Auto) 0.8 L (1.0-6.0) % Baso % (Auto) 0.5 (0.0-1.0) % Lymph # (Auto) 1.87 (1.10-4.50) K/mm3 [place] # (Auto) 0.62 (0.10-0.90) K/mm3 Eos # (Auto) 0.07 (0.02-0.50) K/mm3 Baso # (Auto) 0.04 (0.00-0.10) K/mm3 Abs Immat Gran (auto) 0.02 H (0.00-0.00) K/mm3 Absolute Neuts (auto) 5.97 (1.70-7.20) K/mm3 Absolute Nucleated RBC 0.00 (0.00-0.00) K/mm3 Nucleated RBC % 0.0 (0-0.0) % PT 10.7 (9.50-12.1) Seconds INR 1.0 APTT 24.8 (23.9-30.70) Sec D-Dimer 0.19 (0.19-0.50) mg/L Sodium 140 (137-145) mmol/L Potassium 3.6 (3.4-5.0) mmol/L Chloride 101 (98-107) mmol/L Carbon Dioxide 31 H (22-30) mmol/L Anion Gap 8 (4-12) mmol/L BUN 7 (7-17) mg/dL Creatinine 0.82 (0.7-1.0) mg/dL Estim Creat Clear Calc 94 ml/min Estimated GFR > 60 (59 - ) Glucose 88 (65-110) mg/dL Calculated Osmolality 287 (285-295) mOsm/kg Calcium 9.3 (8.4-10.2) mg/dL Total Bilirubin 0.5 (0.2-1.3) mg/dL AST 30 (14-36) U/L ALT 33 (6-35) U/L Alkaline Phosphatase 51 (38-126) U/L Troponin I < 0.012 (0.000-0.034) ng/mL Total Protein 8.9 H (6.3-8.2) g/dL Albumin 4.5 (3.5-5.1) g/dL Lipase 36 (23-300) U/L Urine Color Yellow (Yellow) Urine Appearance Sl cloudy A (Clear) Urine pH 8.0 (5.0-8.0) Ur Specific [place] 1.015 (1.010-1.020) Urine Protein Negative (Negative) Urine Glucose (UA) Negative (Negative) Urine Ketones Negative (Negative) Ur Blood (Man) Negative (Negative) Urine Nitrate Negative (Negative) Urine Bilirubin Negative (Negative) Urine Urobilinogen 0.2 (0.2-1.0) mg/dL Leukocyte Esterase Rfl Negative (Negative) JULIET/UL Urine RBC None seen (0-2) /hpf Urine WBC 0-3 (0-3) /hpf Ur Squamous Epith Cells Moderate H (Few) /hpf Urine Bacteria 3+ H (None) /hpf Urine Test Negative Imaging Data Attestation: I personally reviewed and interpreted this imaging study as follows: Radiologist's impression: Chest x-ray is negative for acute process ECG Data EKG #1: Attestation: I personally reviewed and interpreted this ECG as follows: ECG completion date: 04/21/25 ECG completion time: 18:25 EKG Interpretation: normal rate, sinus rhythm, no ectopy, no ST changes, normal QRS, normal QT, NL axis and no acute changes Discharge Plan Discharge Clinical Impression: Acute costochondritis, Atypical chest pain Patient Disposition: Home Condition: Stable Instructions: Costochondritis (ED), Chest Wall Pain (ED) Patient Language: Sudanese Prescriptions: New methylprednisolone [Medrol (Madhav)] 4 mg tablets,dose pack See Rx Instructions .ROUTE .COMPLEX Qty: 21 0RF Rx Instructions: orally per package directions No Action trazodone 50 mg tablet PO DAILY bupropion HCl [Wellbutrin SR] 100 mg tablet sustained-release 12 hr 100 mg PO BID hydrochlorothiazide 12.5 mg tablet 12.5 mg PO DAILY Qty: 90 3RF Wegovy 0.25 mg/0.5 mL pen injector 0.25 mg subcut WEEKLY Qty: 2 0RF Rx Instructions: administer weeks 1 through 4 of therapy Follow-up/Referrals: Eloise Root NP [Primary Care Provider, [facility]] Time of Disposition: 19:33
[2025-04-21] MEDS: KETOROLAC (*BKC) 60 MG/2 ML VIAL IM (18:25)
[2025-04-21 18:37] LABS: Hematocrit 35.5 % (35.0-49.0); Hemoglobin 12.5 g/dL (12.0-15.0); Immature Granulocyte Percent A 0.2 % (0.0-0.0); Lymphocytes Absolute Auto 1.87 K/mm3 (1.10-4.50); Mean Corpuscular HGB Conc 35.2 g/dL (32-36); Mean Corpuscular Hemoglobin 29.9 pg (27.0-31.0); Mean Corpuscular Volume 84.9 fL (78.0-102.0); Nucleated Red Blood Cells Absolute Auto 0.00 K/mm3 (0.00-0.00); Nucleated Red Blood Cells Perc 0.0 % (0-0.0); Platelet Count Result 271 K/mm3 (150-420); Red Blood Count 4.18 M/mm3 (4.20-5.40); White Blood Count 8.6 K/mm3 (4.8-10.8)
[2025-04-21 18:56] LABS: Alanine Aminotransferase 33 U/L (6-35); Albumin Level 4.5 g/dL (3.5-5.1); Alkaline Phosphatase 51 U/L (38-126); Anion Gap 8 mmol/L (4-12); Aspartate Amino Transferase 30 U/L (14-36); Bilirubin,Total 0.5 mg/dL (0.2-1.3); Blood Urea Nitrogen 7 mg/dL (7-17); Calcium 9.3 mg/dL (8.4-10.2); Carbon Dioxide 31 mmol/L (22-30); Chloride 101 mmol/L (98-107); Estimated CRCL calculation 94 ml/min; Estimated Glomerular Filt Rate > 60; Glucose 88 mg/dL (65-110); Lipase 36 U/L (23-300); Osmolality Calculated 287 mOsm/kg (285-295); Potassium 3.6 mmol/L (3.4-5.0); Sodium 140 mmol/L (137-145); Total Protein 8.9 g/dL (6.3-8.2)
[2025-04-21 18:59] LABS: INR 1.0; Partial Thromboplastin Time 24.8 Sec (23.9-30.70); Prothrombin Time 10.7 Seconds (9.50-12.1)
[2025-04-21 19:00] VITALS: PULSE 85; RESP 19; O2SAT 98
[2025-04-21 19:01] VITALS: BP 123/89; PULSE 86; RESP 20; TEMP 36.7; O2SAT 98
[2025-04-21 19:08] LABS: Troponin I < 0.012 ng/mL (0.000-0.034)
--- NOTE | 2025-04-21 19:21 | PC.NURSE ---
Pt ambulatory with steady gait to and from restroom for needed UA specimen. Pt states pain has improved. No new needs voiced. Cardiac, NIBP, and SPO2 monitoring resumed. Call light in reach. Side rail up 07/03.
[2025-04-21 19:23] LABS: Glucose Urine UA Negative (Negative); Leukocyte Esterase Ur Negative LEU/UL (Negative); Nitrate Urine Negative (Negative); Specific Grav Ur 1.015 (1.010-1.020)
[2025-04-21 19:29] LABS: Add Urine Microscopic? YES; Appearance Urine Sl Cloudy (Clear); Pregnancy On Board Control Positive
[2025-04-21 19:42] VITALS: BP 134/89; PULSE 85; RESP 15; TEMP 36.5; O2SAT 97
--- OUTSIDE RECORDS SUMMARY | 2025-04-21 19:57 | XMS_ITS | Clinical Summary ---
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 Gender Identity Not on file Sexual Orientation Not on file Last Filed Vital Signs Vital Sign Reading Time Taken Comments Blood Pressure 131/75 07/02/2024 5:07 AM HAND SPRAY OPERATOR Pulse 64 07/02/2024 5:07 AM HAND SPRAY OPERATOR Temperature 36.4 C (97.6 F) 07/02/2024 5:07 AM HAND SPRAY OPERATOR Respiratory Rate 18 07/02/2024 5:07 AM HAND SPRAY OPERATOR Oxygen Saturation 100% 07/02/2024 5:07 AM HAND SPRAY OPERATOR Inhaled Oxygen Concentration - - Weight 90.4 kg (199 lb 3.2 oz) 07/02/2024 12:41 AM HAND SPRAY OPERATOR Height 165.1 cm (5' 5) 07/02/2024 12:41 AM HAND SPRAY OPERATOR Body Mass Index 33.15 07/02/2024 12:41 AM HAND SPRAY OPERATOR Plan of Treatment Health Maintenance Due Date Last Done Comments Annual Physical 02/23/1999 HPV Vaccines (2 - 2-dose series) 08/03/2011 01/31/2011 Hepatitis C 02/23/2014 Cervical Cancer Screening Pap Smear (Age 21 to 29) Every 3 Years 07/06/2024 07/06/2021 Cervical Cancer Screening 07/06/2024 COVID-19 Vaccine ( season) 2025 12/05/2022, 11/12/2021, 03/03/2021, Additional history exists Influenza Adult (#1) 2025 05/02/2022, 04/26/2021, 03/25/2020, Additional history exists DTaP, Tdap and Td Vaccines (8 - Td or Tdap) 12/01/2032 12/01/2022, 11/03/2009, 11/03/2009, Additional history exists Hepatitis B Vaccines Completed 03/02/2006, 08/16/2005, 02/22/2005 Hepatitis A Vaccines Completed 02/07/2010, 03/02/20 06 Meningococcal Vaccine Aged Out 02/07/2010 No nigel [...] age to complete this topic Insurance MEDICAID Care Teams De Icer Finisher Relationship Specialty Start Date End Date None, Provider, MD PCP - General UNKNOWN PHYSICIAN SPECIALTY 07/02/24
--- OUTSIDE RECORDS SUMMARY | 2025-04-21 19:57 | XMS_ITS | Data Portability ---
Author Organization [facility] [place] Address [address] [place] [address] [place] [address] Assessment Encounter Date Assessment Date Assessment LastModified by Organization Details LastModified Time 08/25/2022 08/25/2022 Chronic diarrhea, would like to sent to GI, stress incontinence going to send Dr. Quiroz, pelvic, pain with intercourse want to do a diagnostic scope. We agreed that we agreed possibly doing a sling with Dr. Quiroz and diagnostic laparoscopy. Should be considering Crohn's disease and chronic GI issues causing power of a pelvic pain and pressure.23 [email or web address] Not available 08/25/2022 16:26:30 Plan of Treatment Reminders Order Date Submit Date Provider Last Modified By Organization Details Last Modified Time Details Appointments None recorded. Lab None recorded. Referral None recorded. Procedures None recorded. Surgeries None recorded. Imaging US, pelvis 2022 023 [email or web address] [place], [address], [place], [address], 3 22:15:46 US, transvagina l 2022 023 [facility], [address], [address], [place], [address], 3 18:29:41 US, pelvis, complete 2022 023 [facility], [address], [address], [place], [address], 3 05:01:41 Medication Orders None recorded. Patient TargetsNo targets recorded. Patient InstructionsNo instructions recorded. Reason for Referral None Reported. Results Created Date Observation Date Name Description Value Unit Range Abnormal Flag Note LastModifiedBy Organization Detail LastModifiedTime 08/23/1908/24/2022 US, pelvi s No observ ation record ed. [place] [address], [place], [address], 09/04/2022 18:29:40 08/23/1908/24/2022 US, trans vagin al No observ ation record ed. [place] [address], [place], [address], 09/04/2022 18:29:41 08/23/1908/23/2022 US, pelvi s No observ ation record ed. [facility] [address], [place], [address], 08/29/2022 22:07:10 09/01/1908/23/2022 US, pelvi s No observ ation record [facility]. [facility] [address], [place], [address], 09/04/2022 18:29:40 Result Notes None recorded. Procedures Surgical History Date Name Laterality Status Provider Name and Address Organization Details Recorded Time 2 Date of Last Pap Smear completed [facility] 08/21/2022 10:11:43 8 Tubal Ligation completed [facility] 08/21/2022 10:13:15 Breast Surgery completed EJ Lindsay [address], [place], [address], [facility] 08/21/2022 11:44:23 Imaging Results None recorded. Procedure Notes None recorded. Medical Equipment None Reported. Allergies Allergen ID Allergen Name Allergen Category Reaction Reaction Severity Criticality Documentation Date Start Date Code Code System Note Provider Name and Address Organization Details Recorded Time cranberry preparati on food,medi cation hives Not available Not available 08/21/2022 82535 3 RxNorm Meri Gutierrez [facility] 10:11:34 Medications Name Sig Start Date Stop Date Status Note LastModified by Organization Details LastModified Time phentermine 30 mg capsule active Not Available Not Available Not Available amoxicillin 875 mg tablet TAKE 1 TABLET BY MOUTH EVERY 12 HOURS FOR 10 DAYS 08/21 completed Not Available Not Available Not Available erythromyci n 5 mg/gram (0.5 %) eye ointment APPLY A SMALL AMOUNT TO AFFECTED EYE LID DAILY DIRECTED 08/21 completed Not Available Not Available Not Available metformin ER 500 mg tablet,exte nded release 24 hr 08/21 completed Not Available Not Available Not Available sodium fluoride 1.1 % dental gel 08/21 completed Not Available Not Available Not Available amoxicillin 500 mg-potassiu m clavulanate 125 mg tablet TAKE 1 TABLET BY MOUTH TWICE DAILY 08/21 completed Not Available Not Available Not Available Vitals Date Recorded Systolic And Diastolic Provider Name and Address Organization Details Last Updated DateTime 08/21/2022 128/80 mm[Hg] Ngozi Berman REGGIE- [address], [place], [address], [facility] 08/21/2022 11:38:44 Date Recorded Body height Body mass index (BMI) Body weight Provider Name and Address Organization Details Last Updated DateTime 08/21/2022 162.56 cm 30.2 kg/m2 38933.26 g Meri Gutierrez [facility] 08/21/2022 10:11:24 Date Recorded Body height Body mass index (BMI) Body weight Systolic And Diastolic Provider Name and Address Organization Details Last Updated DateTime 08/25/2022 162.56 cm 30.9 kg/m2 24352.63 g 138/82 mm[Hg] Christel Raines [facility] 08/25/2022 15:49:51 Social History Question Answer Notes LastModified by Organizat ion Details LastModified Time Tobacco Smoking Status Never Smoker Anuradha Flaherty [facility] 08/25/2022 15:25:47 How Many Years Have You Consumed Alcohol? 9 Information not available 08/21/2022 Are You Blind Or Do You Have Difficulty Seeing? No Information n ot available 08/21/2022 What Is Your Level Of Caffeine Consumption? Occasional Information not available 08/21/2022 How Much Tobacco Do You Chew? None Information not available 08/21/2022 In The 14 Days Before Symptom Onset, Have You Had Close Contact With A Laboratory-confirm ed COVID-19 While That Case Was Ill? No Information n ot available 08/21/2022 In The 14 Days Before Symptom Onset, Have You Had Close Contact With A Person Who Is Under Investigation For COVID-19 While That Person Was Ill? No Information not available 08/21/2022 Have You Been To An Area Known To Be High Risk For COVID-19? No Information not available 08/21/2022 Are You Deaf Or Do You Have Serious Difficulty Hearing? No Information not available 08/21/2022 What Type Of Diet Are You Following? REGULAR Information n ot available 08/21/2022 What Is The Highest Grade Or Level Of School You Have Completed Or The Highest Degree You Have Received? [id number] Information not available 08/21/2022 Are There Any Guns Present In Your Home? Yes Information not available 08/21/2022 Do You Use Protection During Sex? No Information not available 08/21/2022 Do You Use Your Seat Belt Or Car Seat Routinely? Yes Information not available 08/21/2022 Do You Have Smoke And Carbon Monoxide Detectors In Your Home? Yes Information not available 08/21/2022 How Much Tobacco Do You Smoke? No Information not available 08/21/2022 Do You Use Sunscreen Routinely? No Information not available 08/21/2022 Have You Used IV Drugs? Yes Information not available 08/21/2022 Do You Have Difficulty Walking Or Climbing Stairs? No [email or web address] Information not available 08/25/2022 Sex: Unknown Functional Status Question Answer Note LastModified by Organizat ion Details LastModified Time Do you use any illicit or recreational drugs? No Information not available 08/21/2022 What is your level of alcohol consumption? Occasional Information not available 08/21/2022 Are you able to walk independently without assistance or assistive devices? YESWOREST Information not available 08/21/2022 Are you able to care for yourself independently? Yes [email or web address] Information not available 08/25/2022 What is your occupation? [employer] Information not available 08/21/2022 Do you have difficulty dressing, bathing, grooming, or toileting? No [email or web address] Information not available 08/25/2022 What is your exercise level? Moderate Information not available 08/21/2022 Mental Status Question Answer Note LastModified by Organization D etails LastModified Time Do you feel stressed (tense, restless, nervous, or anxious, or unable to sleep at night)? [id number] Information not available 08/21/2022 Family History Relationship Description Onset Age of this Age Resolved Age Notes LastModified by Organization Details LastModified Time Maternal Uncle Substance abuse Not available 2022 10:11:37 Maternal Grandmother Disorder of thyroid gland Not available 2022 10:11:37 Maternal Grandmother Depressive disorder Not available 2022 10:11:37 Mother Hypercholest erolemia Not available 2022 10:11:37 Mother Disorder of thyroid gland Not available 2022 10:11:37 Mother Anxiety disorder Not available 2022 10:11:37 Mother Depressive disorder Not available 2022 10:11:37 Mother Hypertensive disorder Not available 2022 10:11:37 Brother Depressive disorder Not available 2022 10:11:37 Sister Anxiety disorder Not available 2022 10:11:37 Sister Depressive disorder Not available 2022 10:11:37 Maternal Aunt Anxiety disorder Not available 2022 10:11:37 Maternal Aunt Depressive disorder Not available 2022 10:11:37 Father Anxiety disorder Not available 2022 10:11:37 Father Depressive disorder Not available 2022 10:11:37 Father Hypertensive disorder Not available 2022 10:11:37 Maternal Grandfather Hypercholest erolemia Not available 2022 10:11:37 Maternal Grandfather Heart disease Not available 2022 10:11:37 Paternal Uncle Substance abuse Not available 2022 10:11:37 Medical History Condition Response Anxiety Disorder Y Depression/ depression Y Gynecological History Statement/Question Response Flow Moderate Date of LMP 08/11/2022 N Was last menstrual period normal Y STIs/STDs N Desired Control Method Hysterectom y Abnormal Pap N On BCP's at Conception? N HPV Vaccine N Duration of Flow (days) 4 Current Control Method Tubal Ligat ion Age at First Child 22 Are cycles usually normal Y Frequency of Cycle (Q days) 30 Sexually Active? Y Menses Monthly Y Age of first menstrual cycle 13 Date of Last Pap Smear 06/23/2022 Sexual Problems? Y LMP Definite N 06/23/2022 Obstetrics History GPAL:G 2 P 2 0 0 2 Type Value Full Term 2 Living 2 Total 2 Past Encounters Encounter ID Performer Location Encounter Start Date Encounter Closed Date Diagnosis/Indication Diagnosis SNOMED-CT Code Diagnosis ICD10 Code Diagnosis IMO Codes Diagnosis Note [id number] Ngozi Berman [facility] [address] [address] 08/21/2022 10:02:12 08/21/2022 11:51:34 Uterine prolapse 58258709 N81.4 Today we discussed the following in relation to uterine prolapse stage 1. Recommenda tions: 1. Conservati ve options.Pe ssary-ring with supportPel victoriano floor PT 2. Other options. Consult MD Dr. Hosue Agreeable to the following: Schedule USConsult Horace discussed considerat ion of trial of pessary which would meet daily goal of relieving pressure/f eeling of bulge; but would not resolve the issues during sexual activity. Hx of tubal ligation.U TD Pap 2021--will have records sent. Time spent in visit is a total of 15 mins with at least 50% of visit consisting of counseling and review of plan of care. [id number] Mike House MD [place] [address] [address] 08/23/2022 17:34:41 08/23/2022 18:10:04 Uterine prolapse 72835535 N81.4 Prolapse o f female genital organs 88157710 N81.9 [id number] Mike House MD [place] [address] [address] 08/25/2022 15:25:39 08/28/2022 15:03:26 Dyspareunia 03042131 N94.10 Pain in pelvis 89322134 R10.2 this patient is a 27-year-ol d female who presented with concerns of pelvic organ prolapse. She has a fairly normal exam with minimal descent of bladder and vaginal apex. It is clinically insignific ant likely. She does have profound pelvic pressure and pain with intercours e she states. She has chronic diarrhea. She has stress urinary incontinen ce. We spent over 40 minutes face-to-fa ce. More than 50% was counseling . We talked about these 3 complex topics pelvic pain, pain with intercours e, chronic diarrhea, stress urinary incontinen ce. We agreed to possible diagnostic laparoscop y in conjunctio n with a sling procedure for her urinary incontinen ce. She is going to be referred to Urogynecol doug for consult on the sling. She will be referred to GI for consult on chronic diarrhea. We opened to get this pelvic pain issues sorted out by looking in 3 different areas Diarrhea [id number] R19.7 Health Concerns Section Related Observation LastModified by Organization Detai ls LastModified Time None Recorded Concern Status LastModified by Organization Details LastModified Time None Recorded Advance Directives Directive None Recorded Payers Insurance Date Sequence Insurance Name Policy Number Policy Ortiz Covered Member ID Ortiz Member ID Guarantor Name 08/28/2022 1 [facility] [id number] Sheng Mary October [id number] Gale May Notes Date Note Type Note Provider Name and Address Organization Details Recorded Time 08/21/2022 text/html Patient is a 27yo white reproductive age female here today to discuss pressure from uterine prolapse. She noticed this issue over the last 2yrs with last of youngest child delivered by .Feels daily pressure.Feels a bulge when strains to have BM-neg constipation.Her spouse & herself can prominently feel this issue during sexual activity.This is what prompted her to seek additional evaluation.She has never had an US to determine if other issues could be present effecting/causing this problem.Feels her last gyn physician blew my concerns off. Neg effects on menstrual cycle.Neg pain of abd/pelvis/flankNe g urinary sx's: incontinence, bladder pain, dysuria, urine stream changes.Neg GI sx'sNeg N/V/F/C/DNeg Vag d/c, odor, irritation, itching Hx reviewed & updated in chart. Ngozi Berman, REGGIE- [address], [place], [address], [facility] 08/21/2022 11:51:41 08/25/2022 text/html This patient is a 27-year-old female presents for pelvic organ prolapse. She has intense pelvic pressure and pain with intercourse. She does not have anything bulging from the vagina. She has pain with deep thrust penetration. The opening of the vagina does not hurt. The surfaces of the vagina do not hurt. Patient denies any urinary urgency. She does have some urinary incontinence with cough laugh and sneeze. Patient does have some GI symptoms. She has had chronic loose and stools and diarrhea since she was very young. She denies any nausea, vomiting, fever, chills. she reports some episodes of heavy bleeding. Her periods are regular. She denies any vaginal discharge. Mike House MD [address], [place], [address], [facility] 08/25/2022 17:27:08 OBGyn Episode Ob Episode Information Episode Created Date Number of Fetuses Patient Bloodtype Patient rh Status Prepregnancy Weight lbs Domestic Partner Domestic Partner Phone Father Name Third Officer Status 02/20/20 23 1 CLOSED Fetus Data First Name Last Name Admitted to NICU Weight (g) Sex Living Outcome Pediatric Complications Fetus ID Race Codes Race Delivery Type 3203.26 6704 M Full Term [id number] Primary Rich Calculation Initial Rich Date Initial Exam Date Initial Exam Provider Initial Ultrasound Date Last Menstrual Period Date Ultra Sound Weeks Gestation 0 Eighteen To Twenty Week Rich Update Ultra Sound Date Fundal Height At Umbil Quickening Date Ultra Sound Latest Weeks Gestation Final Rich Confirmed By Final Rich Confirmed Date Final Rich Date Ultra Sound Latest Days Gestation 0 0 Menstrual History Last Menstrual Date Menses Monthly On Bcp Conception Prior Menses Frequency Hcg Plus Date Menarche Onset Age Delivery Information Delivery Date Delivery Type Labor Anesthesia Weeks Gestation Incision Type Labor Labor Length Hrs Delivered By Post Complications Tubal Sterilization Discharge Date Comments Discharge Information Feeding Method Contraceptive Method Maternal HG B and HCT Levels Ob Episode Information Episode Created Date Number of Fetuses Patient Bloodtype Patient rh Status Prepregnancy Weight lbs Domestic Partner Domestic Partner Phone Father Name Third Officer Status 08/21/19 23 1 CLOSED Fetus Data First Name Last Name Admitted to NICU Weight (g) Sex Living Outcome Pediatric Complications Fetus ID Race Codes Race Delivery Type 2863.07 2704 F Full Term [id number] Vaginal Delivery Rich Calculation Initial Rich Date Initial Exam Date Initial Exam Provider Initial Ultrasound Date Last Menstrual Period Date Ultra Sound Weeks Gestation 0 Eighteen To Twenty Week Rich Update Ultra Sound Date Fundal Height At Umbil Quickening Date Ultra Sound Latest Weeks Gestation Final Rich Confirmed By Final Rich Confirmed Date Final Rich Date Ultra Sound Latest Days Gestation 0 0 Menstrual History Last Menstrual Date Menses Monthly On Bcp Conception Prior Menses Frequency Hcg Plus Date Menarche Onset Age Delivery Information Delivery Date Delivery Type Labor Anesthesia Weeks Gestation Incision Type Labor Labor Length Hrs Delivered By Post Complications Tubal Sterilization Discharge Date Comments 7 Discharge Information Feeding Method Contraceptive Method Maternal HG B and HCT Levels
--- OUTSIDE RECORDS SUMMARY | 2025-04-21 19:57 | XMS_ITS | Clinical Summary ---
Author Organization [facility] Address [address] [place] [address] Care Team Providers Care Bed Bug Exterminator Name Role Phone Dawood New MD Primary Care Provider [phone] Dawood New MD Unavailable Allergies Active Allergy Reactions Criticality Noted Date Comments Cranberry Extract Rash Medium 08/29/2011 Latex Hives Medium 06/22/2021 Medications No known medications Active Problems Problem Noted Date Diagnosed Date Physical exam, annual 07/10/2022 Assessment & Plan (07/10/2022 3:40 PM NIB ASSEMBLER): Discussed lifestyle modifications, diet and exercise. Routine blood work ordered/reviewed today. Yearly vision and dental examinations. Class 1 obesity without seri ous comorbidity with body mass index (BMI) of 31.0 to 31.9 in adult 07/06/2021 Assessment & Plan (07/10/2022 3:42 PM NIB ASSEMBLER): Wt Readings from Last 3 Encounters: 07/10/22 [...] else Assessment & Plan (07/06/2021 3:46 PM NIB ASSEMBLER): HPI: Condition is not at/near goal A&P: Discussed/ordered labs, encouraged healthy, low carbohydrate lifestyle and at least 150min/week of exercise, continue on current regimen Encounter for well woman fay castelan with routine gynecological exam 07/06/2021 Assessment & Plan (07/06/2021 3:20 PM NIB ASSEMBLER): Discussed lifestyle modifications, diet and exercise. Routine blood work ordered/reviewed today. Yearly vision and dental examinations. Amenorrhea, secondary 06/22/2021 Assessment & Plan (07/18/2021 12:05 PM NIB ASSEMBLER): Still no period. No other symptoms blood work normal. Will likely need referral for regional recruiter, will wait for pap results. Addendum: Pap showed ACUS with negative HPV. Advised pt she will need repeat pap in 1 year. Would lke referral to OBGYN due to amenorrhea Assessment & Plan (06/22/2021 3:02 PM NIB ASSEMBLER): Unknown cause, has been going on for 2 months. States that she has been gaining singnificant weight since her last childbirth Recurrent major depressive disorder, in partial remission 06/22/2021 Assessment & Plan (07/10/2022 3:40 PM NIB ASSEMBLER): Stable - not currently on antidepressives. Doing well otherwise Patient reiterated no suicidal thoughts at this time; take medication as directed; contact 911 and go to the ER if becomes suicidal; discussed side effects of medication with patient; encouraged healthy diet and exericise; encouraged patient to see a counselor Assessment & Plan (06/22/2021 3:06 PM NIB ASSEMBLER): Patient reiterated no suicidal thoughts at this time; take medication as directed; contact 911 and go to the ER if becomes suicidal; discussed side effects of medication with patient; encouraged healthy diet and exericise; encouraged patient to see a counselor Abnormal weight gain 06/22/2021 Assessment & Plan (07/06/2021 3:45 PM NIB ASSEMBLER): Weight manamgenet referral placed. Noted with elevated c - peptide. Can consider work up for pcos, consider starting metformin Assessment & Plan (06/22/2021 3:08 PM NIB ASSEMBLER): Will check lab work, and have patient return for follow up. Is currentl making lifestyle and diet changes, works out daily and continues to have weight gain. Potential galactorrhea but patient is unsure Allodynia 12/06/2012 Chronic daily headache 12/06/2012 Assessment & Plan (06/22/2021 3:06 PM NIB ASSEMBLER): Headaches doing okay at this time,but will [...] on file Legal Sex Female 3:30 PM NIB ASSEMBLER Gender Identity Not on file Sexual Orientation Not on file Obstetrics History Last Filed Vital Signs Vital Sign Reading Time Taken Comments Blood Pressure 121/74 07/10/2022 3:34 PM NIB ASSEMBLER Pulse 96 07/10/2022 3:34 PM NIB ASSEMBLER Temperature 36.4 C (97.5 F) 07/10/2022 3:34 PM NIB ASSEMBLER Respiratory Rate 18 07/10/2022 3:34 PM NIB ASSEMBLER Oxygen Saturation 98% 07/10/2022 3:34 PM NIB ASSEMBLER Inhaled Oxygen Concentration - - Weight 83.9 kg (185 lb) 07/10/2022 3:34 PM NIB ASSEMBLER Height 163.8 cm (5' 4.49) 07/10/2022 3:34 PM CS T Body Mass Index 31.27 07/10/2022 3:34 PM NIB ASSEMBLER Plan of Treatment Health Maintenance Due Date [...] 07/10/2023 07/10/2022, 07/06/2021 Covid-19 Vaccine ( - 2024-2 6 season) 2025 11/12/2021, 03/03/2021, 02/10/2021 Influenza Vaccine (#1) 2025 2, 04/26/2021, 03/25/2020, Additional history exists Hepatitis B Screening Completed 03/02/2006 , 03/02/2006, 08/16/2005, Additional history exists Procedures Procedure Name Priority Date/Time Associated Diagnosis Comments PAP AND HIGH RISK HPV, REFLEX TO GENOTYPING Routine 07/06/2021 11:01 AM NIB ASSEMBLER from Last 3 Months or Most Recently Relevant to Health Maintenance Results * (ABNORMAL) Pap and High Risk HPV, reflex to Genotyping (07/06/2021 11:01 AM NIB ASSEMBLER) Pap test 07/06/2021 11:0 1 AM NIB ASSEMBLER 07/07/2021 11:01 AM NIB ASSEMBLER Narrative 07/13/2021 3:17 PM NIB [facility]SEMBLER [facility] Department [facility]ology [address] [place], [place] [id number] Final Report with Addendum Note to Patients: [...] the details. Patient Name: GALE CHENEY Address: [address] [place] [address] Gender: F : 1995 (Age: 26) Service: Laboratory Location: Lab [facility] #: [id number] Patient Type: Ref Lab Taken: 07/06/2021 Received: [...] determined by the Surgical Pathology Department at [facility] as part of an ongoing quality system manager program and in compliance with federally mandated [...] characteristics determined by the Surgical Pathology Department [facility]. It has not been cleared or approved by the U. S. Food and Drug Administration. Dawood New MD LAB CYTOLOGY ORDERABLES Final Re sult from Last 3 Months or Most Recently Relevant to Health Maintenance Insurance [employer] Care Teams Bed Bug Exterminator Relationship Specialty Start Date End Date Dawood New MD PCP - General 06/23/21 Dawood New MD Family Medicine 06/23/21
--- OUTSIDE RECORDS SUMMARY | 2025-04-21 19:57 | XMS_ITS | Clinical Summary ---
Author Organization [facility] [employer] Address [address] [place] [address] Care Team Providers Care Garageman Name Role Phone Otoniel Key MD Primary Care Provider [phone] Source Comments [facility] [employer]non-owned Affiliates and Associated Physician Practices is amultiple site organization consisting of ambulatory clinics and hospital sitesin [place], [place], [place] and [place]. This disclosure is being madepursuant to the Care Everywhere program and may not contain all information available regarding this patient. Last updated 18.[facility] [employer] Allergies Active Allergy Reactions Criticality Noted Date [...] on file Legal Sex Female 11:27 AM DIRECTOR OF REAL [employer] Gender Identity Not on file Sexual Orientation Not on file Last Filed Vital Signs Vital Sign Reading Time Taken Comments Blood Pressure 118/68 08/13/2019 3:05 PM [employer] OF [employer] Pulse 103 08/13/2019 3:05 PM [employer] Temperature 36.3 C (97.4 F) 08/13/2019 3:05 PM [employer] Respiratory Rate - - Oxygen Saturation - - Inhaled Oxygen Concentration - - Weight 85.7 kg (189 lb) 08/13/2019 3:05 PM [employer] Height 165.1 cm (5' 5) 08/13/2019 3:05 PM [employer] Body Mass Index 31.45 08/13/2019 3:05 PM DIRECTOR OF REAL [employer] Plan of Treatment Health Maintenance Due Date Last Done Comments HIV SCREENING 02/23/2011 HEPATITIS C SCREENING 02/19/2014 DTAP/TDAP/TD VACCINES (1 - Tdap) 02/23/2015 HEPATITIS B VACCINE (1 of 3 - 19+ 3-dose series) 02/23/2015 PAP SMEAR 02/23/2017 HPV VACCINE (1 - 3-dose SCDM series) 02/23/2023 DEPRESSION SCREENING 07/02/2024 COVID-19 VACCINE (1 - 2023-2 5 season) 2025 INFLUENZA VACCINE (#1) 2025 05/07/2018 ZOSTER VACCINE (1 of 2) 02/23/2046 HIB [...] complete this topic Insurance MEDICAID - [place] [facility] Care Teams Garageman Relationship Specialty Start Date End Date Otoniel Key MD [address] [place] [address] PCP - General 01/18/21
--- OUTSIDE RECORDS SUMMARY | 2025-04-21 19:57 | XMS_ITS | Patient Health Record ---
Author Organization [facility] [employer] Address [address] [place] [address] Care Team Providers Care Special Services Coordinator Name Role Phone Samson Gonzalez Unavailable [phone] Reason For Referral No Information Medications Medication SIG (Take, Route, Frequency, Duration) Notes Start Date End Date Status DULoxetine HCl 20 MG Capsule Delayed Release Particles Oral 11/23/2020 Active lamoTRIgine 100 MG Tablet Oral 11/23/2020 Active Immunizations Vaccine Route Administration Date Status Comme nts Influenza, injectable, MDCK, preservative free Unknown 03/25/2020 Administered Social History Social History Additional Details Category Social Info Options Details Migrated Social History Migrated Social History Alcohol Intake: None 09/22/2020,Tobacco Years: Never smoker 09/22/2020 Plan Of Treatment No Information Insurance Providers Payer Name Payer Address Payer Phone Subscriber Number Group Number Insured Name Patient Relationship to Insured Coverage Start Date Coverage End Date [facility] [address] [place] [phone] [id number] NIC CHENEY Spouse - patient is the spouse of the insured Medical (General) History Surgical History Surgery Date(Month/Year) Other Ligation of bilateral fallopian tubes ([id number] [phone])
== END 2025-04-21 19:40 | disposition home or self-care (01) ==
PROVIDERS: Emergency Provider Emergency Medicine; PCP Nurse Practitioner Family
DX: M94.0 Chondrocostal junction syndrome [Tietze] (principal); R07.89 Other chest pain
CPT/HCPCS: 36415; 71046; 80053; 81001; 81025; 83690; 84484; 85025; 85380; 85610; 85730; 93005; 96372; 99284; J1885